=== PATIENT | male | born 1945 | race Caucasian/White ===

== ENCOUNTER 2019-03-21 11:41 | Outpatient (RCR) | payer MEDICARE, SELFPAY | END 2019-03-29 00:01 | LOC: ONCMED 11:41 | PROVIDERS: Visit Provider Internal Medicine Hematology & Oncology | DX: Z51.12 Encounter for antineoplastic immunotherapy (principal); C34.01 Malignant neoplasm of right main bronchus; K76.9 Liver disease, unspecified; R91.8 Other nonspecific abnormal finding of lung field; J44.9 Chronic obstructive pulmonary disease, unspecified; I25.2 Old myocardial infarction; I25.10 Atherosclerotic heart disease of native coronary artery without angina pectoris; I11.0 Hypertensive heart disease with heart failure; I50.9 Heart failure, unspecified; F17.201 Nicotine dependence, unspecified, in remission; Z79.899 Other long term (current) drug therapy; Z92.3 Personal history of irradiation; Z95.5 Presence of coronary angioplasty implant and graft ==

== ENCOUNTER 2019-04-25 05:35 | Outpatient (RCR) | payer MEDICARE, SELFPAY ==
[2019-04-04 10:28] LABS: Basophils % 0.2 %; Eosinophils # 0.1 10^3/uL (0.0-0.8); Eosinophils % 0.6 %; Hematocrit 35.8 % (42.0-52.0); Hemoglobin 11.1 g/dL (11.7-16.6); Lymphocytes # 0.9 10^3/uL (0.8-4.8); Lymphocytes % 9.2 %; Mean Corpuscular Hemoglobin 24.6 pg (28.0-34.0); Mean Corpuscular Volume 79.2 fL (80-94); Monocytes # 0.7 10^3/uL (0.2-0.9); Monocytes % 7.3 %; Neutrophils # 7.9 10^3/uL (1.8-7.7); Neutrophils % 82.2 %; Nucleated Red Blood Cells % 0 %; Platelet Count 321 10^3/cmm (130-400); Red Blood Count 4.52 10^6/uL (4.1-5.3); Red Cell Distribution Width 15.7 % (12.1-15.1); White Blood Count 9.6 10^3/uL (4.0-10.0)
[2019-04-04 10:44] LABS: Alanine Aminotransferase 7 U/L (0-41); Albumin Level 3.9 g/dL (3.5-5.2); Alkaline Phosphatase 110 IU/L (40-130); Anion Gap 14.7 (5-19); Aspartate Amino Transferase 6 U/L (0-40); Blood Urea Nitrogen 8 mg/dL (8-23); Calcium 10.4 mg/Dl (8.8-10.2); Carbon Dioxide 26 mmol/L (22-29); Chloride 92 mmol/L (98-107); Globulin 3.2 g/dL (1.3-4.6); Glucose 215 mg/dL (74-106); Potassium 4.7 mmol/L (3.5-5.1); Sodium 128 mmol/L (136-145); Total Bilirubin 0.6 mg/dL (0.15-1.2); Total Protein 7.1 g/dL (6.6-8.7)
[2019-04-04 11:07] LABS: Slide Review Slide Review Perform
[2019-04-04] MEDS: sodium chloride 0.9% 250 ML 75 ML IV (11:45)
[2019-04-11 12:11] LABS: Eosinophils % 0.6 %; Hematocrit 33.8 % (42.0-52.0); Hemoglobin 10.3 g/dL (11.7-16.6); Lymphocytes # 0.6 10^3/uL (0.8-4.8); Lymphocytes % 17.1 %; Mean Corpuscular HGB Conc 30.5 g/dL (30.0-36.0); Mean Corpuscular Hemoglobin 25.6 pg (28.0-34.0); Mean Corpuscular Volume 83.9 fL (80-94); Mean Platelet Volume 9.8 fL (7.4-10.4); Monocytes # 0.3 10^3/uL (0.2-0.9); Monocytes % 7.2 %; Neutrophils # 2.6 10^3/uL (1.8-7.7); Neutrophils % 74.2 %; Nucleated Red Blood Cells % 0 %; Platelet Count 204 10^3/cmm (130-400); Red Blood Count 4.03 10^6/uL (4.1-5.3); Red Cell Distribution Width 15.7 % (12.1-15.1); White Blood Count 3.5 10^3/uL (4.0-10.0)
[2019-04-11 12:23] LABS: Alanine Aminotransferase 17 U/L (0-41); Albumin Level 3.1 g/dL (3.5-5.2); Alkaline Phosphatase 101 IU/L (40-130); Anion Gap 13.8 (5-19); Aspartate Amino Transferase 7 U/L (0-40); Blood Urea Nitrogen 8 mg/dL (8-23); Calcium 9.6 mg/Dl (8.8-10.2); Carbon Dioxide 25 mmol/L (22-29); Chloride 94 mmol/L (98-107); Globulin 3.7 g/dL (1.3-4.6); Glucose 379 mg/dL (74-106); Potassium 4.8 mmol/L (3.5-5.1); Sodium 128 mmol/L (136-145); Total Bilirubin 0.2 mg/dL (0.15-1.2); Total Protein 6.8 g/dL (6.6-8.7)
[2019-04-11] MEDS: sodium chloride 0.9% 500 ML 999 ML IV (13:40)
--- NOTE | 2019-04-11 14:12 | ONC FU_ITS ---
[facility] Patient Note Patient: Yogesh Vazquez Unit #: [id number]: 1945 Dictated By: Ben FieldsDate of Visit: Apr 11, 2019 Onc MED Follow-Up/Prog Note Chief Complaint: Lung cancer Right distal main stem bronchus History of Present Illness: Mr. Vazquez is a 74-year-old gentleman with a history of recurrent pneumonias; off and on blood-streaked phlegm; and for at least for 3 weeks coughing up blood . He presented with baseline cough and dyspnea on exertion. He has had fatigue but a good appetite and energy level. Overall he had lost about [address] scan of chest on 10/10/2016 showed right suprahilar and hilar mass 3 x 3.5 x 3.6 cm with diffuse bronchial involvement and narrowing. Soft tissue mass invading the right distal main stem bronchus with severe narrowing of the right proximal upper bronchus . PETCT scan done on 10/18/2016 reveals a 4.5 cm cavitary malignancy in the suprahilar region of the right lung with an SUV of 13.7. The mass encases the right upper lobe bronchus and causes obstructive atelectasis of the anterior segment of the right upper lobe. No evidence of distant metastatic disease. Mr Vazquez underwent bronchoscopy with Dr. Chamorro on 10/22/2016. Pathology report revealed: Lung, Right Mainstem Bronchus, Bronchial Biopsy: Non-Small Cell Carcinoma???Squamous Cell Carcinoma with Immunoperoxidase stain results: block number 1 1. Positive results:CK???5; P???63; TRIM-29; Desmoglein. 2. Negative results:TTF-1; napsin. 3. EGFR 600 E were both reported as negative the as rearrangement by fish was negative ROS 1 & by fish is negative. PD-L1 by IHC 22C3 and PD-L1 by IHC 28-8. Status post combined chemoradiation with weekly cisplatin PAST MEDICAL HISTORY: Myocardial Infarction in 1996 with stent placement in 1996, CAD; Restrictive Airway Disease,chronic obstructive pulmonary disease; congestive heart failure ;hyperlipidemia and hypertension. additional pathology reported EGFR negative BRAF V 60 PAST SURGICAL HISTORY: Cardiac stent in 1996 and hernia repair in 2008. CT scan of chest done on 10/08 showed increased right suprahilar mass 2.9 x 3.2 cm compared to 1.4 cm mass seen on CT PET scan done on 04/11/2017. With this impression he was started on biweekly nivolumab on 11/04/2017. Mr Vazquez had staging with MRI of the brain on 10/31/2017. The MRI did not show any evidence of enhancing intracranial metastatic disease. There was no restricted diffusion to suggest acute ischemia. He did have mild small vessel changes with moderate parenchymal volume loss. There is a small focus of hemosiderin in the right basal ganglia. f/u Ct from 12/14/2017 reported increased cavitation of the right hilar region neoplastic process with continued narrowing of the origin of the right upper lobe bronchus and right upper lobe pulmonary artery branch. No evidence of disease progression elsewhere. Improved anterior segment and persistent posterior segment right upper lobe partial atelectasis. Remote granulomatous disease. Chronic emphysema . He continued on biweekly nivolumab. CT scan of chest done after 6 doses of nivolumab on 01/21/2018 showed stable right suprahilar cavitated neoplastic mass.Now measures 2.2 cm, Slight improvement in the surrounding soft tissue thickening no evidence of disease progression. Persistent narrowing of right upper main stem bronchus and pulmonary artery and persistent partial atelectasis of anterior and posterior right upper lobe. CT PET scan done on 04/17/2018 showed a new 1.8 cm right upper lobe consolidation with SUV 9.1 and superior right hilar lymph node 2.6 cm with SUV of 6.9 compared to 1.7 on previous scan. A new right inferior paratracheal lymph node with SUV of 6. CT PET scan done on 09/18/2018 showed progression of cavitary right upper lobe mass now measured 2.4 x 3 cm compared to 1.8 cm on 04/17/2018 and right hilar malignant adenopathy and stable right paratracheal lymph node, no evidence of distant metastatic disease. Treated with Augmentin/Medrol Dosepak for COPD exacerbation and postobstructive pneumonia right upper lobe and follow-up chest x-ray on 10/04/2018 showed cavitating neoplasm right upper lobe with subsegmental atelectasis appears stable when compared with CT scan of chest done on 01/21/[address] PET done 09/18/2018 Follow-up CT scan of chest done on 12/21/2018 showed there is an increase in the tissue in the right upper lobe with increase in size of cavity to 4.85 cm, whether this increase in tissue represent atelectasis, inflammatory changes or tumor recurrence there is to be determined. There is a development of another small cavity anterior to larger cavity Pleural-based densities in the right upper lobe and right middle lobe have developed since last CT scan done on 01/21/2018 otherwise no evidence of distant metastases. Follow-up CT PET scan done on 03/19/2019 showed the cavitary right upper lobe lesion has progressed, now measuring 11 x 6.4 cm with SUV of 14.8 this. Right hilar lymph node now measure 4.2 x 6 cm with SUV of 10.6 representing progression. The right paratracheal node is similarly progressed. A new questionable adhesion of activity is noted in the central right hepatic lobe roughly 1 cm could be normal variant or early metastatic disease. Dr Mcarthur offered hospice or a trial of carboplatin/gemcitabine. Mr Vazquez elected to try the chemotherapy and began his first cycle of carboplatin/gemcitabine on 04/04/2019. Mr. Vazquez is here today for follow-up and consideration of day 8 of cycle 1. He will have gemcitabine only today. He states overall he feels pretty good. His breathing is slightly better. He still has a cough but is not coughing much up. He states he still has trouble to breathe when walking across the room. He states that he is not smoking. And has not in some time. He denies any fever or chills. He said no mouth sores, sore throat or difficulty swallowing. He denies any chest discomfort or palpitations. He states he did have nausea on of last week and is felt cardiac. He had no vomiting. He denies any diarrhea. He did not try any antiemetics at home. He states it just went away on its own. He states he is eating normally for him. He does occasionally check his blood sugars at home and states that they are greater than 400 then he will watch his diet very carefully and take his sugar medication for couple of days and the blood sugar will get less than 200 . He states he is having some urinary hesitancy at times. He denies any burning but states is just hard to pee at times . We did discuss Flomax. He does not want any medication at this time. He was advised I would like to do a UA on him today if possible while he is here. We are giving him hydration for possible dehydration so we may not be able to get a UA on him. He does like to double check and make sure he does not have a urinary tract infection and that is the culprit of his urinary concerns. He remains active as much as he can. He does run out of wind pretty easily and has to rest. His ECOG is 1. Past Medical History: Chronic obstructive pulmonary disease Congestive heart failure Coronary artery disease Hyperlipidemia Hypertension Restrictive Airway Disease Myocardial Infarction in 1996 Past Surgical History: Hernia repair in 2008 Heart stent in 1996 Allergies: No Known Allergies. Medications: Aspirin 1 Tablet (of 81 mg) Oral daily Isosorbide Mononitrate ER 1 Tablet (of 30 mg) Tablet SR 24 HR Oral daily Januvia 1 Tablet (of 100 mg) Oral daily MetFORMIN HCl ER 1 Tablet (of 750 mg) Tablet SR 24 HR Oral b.i.d. Metoprolol Tartrate 1 Tablet (of 25 mg) Oral daily Pravastatin Sodium 1 Tablet (of 10 mg) Oral daily ProAir HFA 1 puff(s) (of 108 (90 base) mcg/act) Aerosol, solution Inhalation q 4 hours PRN Symbicort 2 puff(s) (of 160-4.5 mcg/act) Aerosol Inhalation b.i.d. Family History: Mr. Vazquez's mother at age 90: heart disease. Mr. Vazquez's father at age 87: congestive heart failure. Mr. Vazquez has 2 sisters: 2 . Mr. Vazquez's first sister's cancer. Another sister's cancer. Social History: Mr. Vazquez is and he is retired. He is a daily smoker who has smoked 1.0 pack/day for 50 years. He has no history of drinking. Mr. Vazquez reports the following support systems: lives alone and adequate transportation available for expected visits. His diet consists of regular meals. He indicates his activity level as: daily activities. Review Of Symptoms: Constitutional Denies fevers, chills, night sweats, excessive fatigue or weight loss. Allergic/Immunologic No reactions. Eyes Denies significant visual changes. No diplopia. No amaurosis. ENMT Denies changes in hearing, sore throat, mouth sores, difficulty or changes in swallowing ability, and/or sinus drainage. Endocrine No diabetes, thyroid disease or hormone replacement. Denies hot flashes or night sweats. Hematologic/Lymphatic Denies easy bruising or bleeding. The patient denies any tender or palpable lymph nodes. Respiratory Denies any new dyspnea on exertion, chest pain. Denies orthopnea. Continues with shortness of breath and intermittent cough but unchanged overall. Cardiovascular Denies anginal chest pain, palpitations or orthopnea. Gastrointestinal Denies nausea, vomiting, diarrhea, GI bleeding, or constipation. Denies change in bowel habits and/or stool color, no heartburn or early satiety. Genitourinary (M) Denies hematuria, dysuria, increased frequency, urgency, hesitancy or incontinence. Musculoskeletal Denies joint pain, swelling or redness. No decreased range of motion. Integumentary Denies chronic rashes, inflammation, ulcerations or skin changes. Neurologic Denies headache, blurred vision, and no areas of focal weakness or numbness. Normal gait. No sensory problems. Psychiatric Denies insomnia, depression, mejia or mood swings. Vital Signs: Performed on Apr 11, 2019 13:04 Height - 72.00 in Weight - 153 lbs (LOW) BSA - 1.90 sq.m BMI - 20.75 Temperature - 98.9 F (HIGH) Pulse - 108 /min (HIGH) Respiration - 18 /min BP - 87/59 mm(hg) (LOW) O2 Sat - 97 % Pain - 0,2 - Ambulatory/capable of all self-care, unable to perform any work activities. Up and about more than 50% of waking hours. (ECOG) Physical Examination: Constitutional Alert, oriented, no acute distress but obviously short of breath. Skin pink, warm and dry. Head Normocephalic; atraumatic. Eyes Conjunctivae and sclerae are clear and without icterus. Pupils are reactive and equal. Neck Supple without masses or thyromegaly. No jugular venous distension. Hematologic/Lymphatic No petechiae or purpura. No tender or palpable lymph nodes in the cervical, supraclavicular areas. Respiratory Lungs are diminished bilaterally to auscultation with mild rhonchi and expiratory wheezing. Cardiovascular Regular rate and rhythm of heart without murmurs,clicks, gallops or rubs. Chest Chest is symmetric without chest wall deformities. Left chest wall venous access device is unremarkable. Back/Spine Non-tender to palpation. Extremities No visible deformities, no cyanosis, clubbing or edema. Pulses 4+ and equal bilaterally. Musculoskeletal No tenderness or swelling, normal range of motion without obvious weakness. Integumentary No rashes or lesions. Neurologic No sensory or motor deficits, normal cerebellar function, normal gait. Psychiatric Alert and oriented times three. Coherent speech. Verbalizes understanding of our discussions today. Laboratory:Test performed on Apr 11, 2019 12:49 Glucose 379 mg/dL BUN 8 mg/dL Creatinine 0.8 mg/dL Cr Clearance (Est) 79.63 mL/min Sodium 128 mmol/L Potassium 4.8 mmol/L Chloride 94 mmol/L CO2 25 mmol/L Calcium 9.6 mg/dL Protein, Total 6.8 g/dL Albumin 3.1 g/dL Globulin 3.7 g/dL Bilirubin, Total 0.2 mg/dL Alkaline Phosphatase 101 IU/L AST (SGOT) 7 IU/L ALT (SGPT) 17 IU/L Test performed on Apr 11, 2019 12:45 WBC 3.5 10^9/L RBC 4.03 10^12/L HGB 10.3 g/dL HCT 33.8 % MCV 83.9 fl MCH 25.6 pg MCHC 30.5 g/dL RDW 15.7 % Platelet Count 204 10^9/L MPV 9.8 fL Neutrophils (Gran) 2.6 10^9/L Lymphocytes 0.6 10^9/L Monocytes 0.3 10^9/L Eosinophils 0 10^9/L Basophils 0 10^9/L Manual Lymphocytes 9.2 % Manual Monocytes 7.3 % Manual Eosinophils 0.6 % Manual Basophils 0.2 % Test performed on Apr 11, 2019 11:41 Neutrophil % 0.6 % Test performed on Feb 03, 2019 11:35 Ferritin 321.0 ng/ml Iron 21 ug/dL TSH 0.92 uIU/mL % Iron Saturation 14.0 % UIBC 129 ug/dL Impression: Mr. Vazquez is a 74-year-old gentleman with a history of recurrently diagnosed nonsmall cell lung cancer of the right mainstem bronchus. He presented with hemoptysis and CT scan of chest on 10/10/2016 showed right suprahilar and hilar mass 3 x 3.5 x 3.6 cm with diffuse bronchial involvement and narrowing. Soft tissue mass invading the right distal main stem bronchus with severe narrowing of the right proximal upper bronchus . CT PET scan done on 10/18/2016 reveals a 4.5 cm cavitary malignancy in the suprahilar region of the right lung with an SUV of 13.7. The mass encases the right upper lobe bronchus and causes obstructive atelectasis of the anterior segment of the right upper lobe. No evidence of distant metastatic disease. He underwent bronchoscopy with Dr. Chamorro on 10/22/2016. 1. Pathology report revealed: Lung, Right Mainstem Bronchus, Bronchial Biopsy: Non-Small Cell Carcinoma???Squamous Cell Carcinoma with Immunoperoxidase stain results: block number 1 a. Positive results:CK???5; P???63; TRIM-29; Desmoglein. b. Negative results:TTF-1; napsin. clinical stage T2b,N1 EGFR & BRAF 600 E were both reported as negative the as rearrangement by fish was negative ROS 1 & by fish is negative. PD-L1 by IHC 22C3 and PD-L1 by IHC 28-8.Status post combined chemoradiation with weekly cisplatin s/p every 2 week nivolumab From 11/04/2017 till 03/21/2019. Patient missed a few doses of nivolumab Treatments Follow-up CT PET scan done on 03/19/2019 showed disease progression in right upper chest and a questionable new lesion in the liver but no bone metastases at that time immunotherapy was discontinued and palliative chemotherapy with carboplatin/gemcitabine day 1 and 8 and repeat every 21 days was planned 2. Myocardial Infarction in 1996 3. Restrictive Airway Disease 4. chronic obstructive pulmonary disease 5. congestive heart failure 6. coronary artery disease-stent in 1996 7. hyperlipidemia 8. hypertension. 9. hyper glycemia with elevated hemoglobin A1c ? AODM or STEROIDS induced CT PET scan done on 01/31/2017 showed equivocal PET/CT scan exam. Primary site of malignancy in the right suprahilar region measuring 1.8 cm with SUV 4 compared to 4.5 cm an SUV 13.7 on his prior exam, dense atelectasis of posterior segment of right upper lobe with 5.4 x 3 cm thick-walled cavitary component that has 2 centimeter focus of hyper metabolism. Could be persistent malignancy or infection. No distant metastatic lesion seen Right chest wall pain no definitive mass, no overlying skin changes ,Tenderness present. Etiology could be musculoskeletal or rib fracture due to bump or recurrence of disease or early shingles CT PET scan done on 04/11/2017 showed 1.4 cm right suprahilar mass has SUV of 6.7 compared to 1.8 cm with SUV of 4 on prior exam done on 01/31/2017. Otherwise no sign of distant metastasis. Ct from 12/14/2017 reported increased cavitation of the right hilar region neoplastic process with continued narrowing of the origin of the right upper lobe bronchus and right upper lobe pulmonary artery branch. No evidence of disease progression elsewhere. Improved anterior segment and persistent posterior segment right upper lobe partial atelectasis. Remote granulomatous disease. Chronic emphysema . Follow-up CT scan of chest done after 6 doses of nivolumab , on 01/21/2018 showed persistent 2.2 cm right suprahilar mass with slight improvement in surrounding soft tissue thickening. No evidence of disease progression. Persistent narrowing of right upper main stem bronchus and pulmonary artery and persistent partial atelectasis of anterior and posterior right upper lobe. Moderate emphysema . CT PET scan done on 04/17/2018 showed a new 1.8 cm right upper lobe consolidation SUV 9.1, Us. Right hilar lymph node 2.6 cm with SUV 6.9, compared to 1.7 cm on previous scan, questionable progression. A new right inferior paratracheal lymph node with SUV 6.0 Mr. Vazquez continued on every two-week nivolumab.. Follow-up CT PET scan done on 09/18/2018 showed most hypermetabolic segment of right upper lobe lesion now measures 2.4 x 3.0 cm with an SUV of 14.0 compared to 1.8 cm with SUV of 9.1 on 04/17/2018 and right hilar lymph node which measured 2.7 cm with SUV of 8.4 compared to 2.6 cm with SUV of 6 on 04/17/2018. There is no malignant cavitation with hypermetabolic postobstructive atelectasis and mild FDG activity in the solid portion of cavitary mass with a measured 7.4 x 5.3 cm overall Stable right paratracheal lymph node. He has increased shortness of breath, even with minimal exertion. Dr Mcarthur was concerned that he could have pneumonitis from the immunotherapy; it may also be disease progression. The immunotherapy was placed on hold. Dr Mcarthur iscussed with Mr Vazquez his CT PET scan findings from03/19/2019 which showed evidence of disease progression in the right chest e.g. progression of right upper lobe cavitary mass and right hilar paratracheal lymph node. And questionable new lesion in the central right hepatic lobe. At that point treatment options includied hospice care was discussed per Dr Mcarthur. Mr Vazquez wants to try palliative therapy so weekly carboplatin AUC 2 and gemcitabine 1000mg/m2 day 1 and day 8 and repeat cycle every 21 days was recommended. Mr Vazquez began his first cycle on 04/04/2019. Plan: 1. Proceed with cycle 1 day 8 Gemzar only. 2. 500 mL NS today for dehydration/hypotension. 3. Encouraged to Compazine prn nausea/queasiness. 4. Today's labs were reviewed in detail and discussed with Mr Vazquez. WBC 3.5 (was 9.6 on day 1), HGB 10.3, platelets 204,000 and ANC 2600 (was 7900 day 1). K+ 4.8, RBS 379, creatinine = 0.8 and LFTs are normal. 5. Mr Vazquez was informed that he may need growth factor support. His ANC will need to drop to around 1000 before insurance approval for Neupogen or Neulasta. 6. He states he is not smoking at all. 7. He states he is not watching his diet and is not taking his diabetic medication. He states if his blood sugar get above 400 then he watches his diet and will take his diabetic pills for couple days and his blood sugar will get less than 200. He states he does not plan to take them daily. 8. I have asked to recheck a CBC in 1 week. He will need assessment for possible neutropenia as his ANC has dropped significantly today from last week. We will add growth factors at that time if appropriate. 9. We will plan to see him back in 2 weeks with CBC CMP, iron studies (hx of iron deficiency) and follow-up for consideration of cycle 2-day 1 carboplatin gemcitabine. 10. Mr. Vazquez was instructed to contact us in the interim should questions or problems arise. Signed By: Ben Fields-, [facility] HOSPITALAngela Mcarthur MD <<Signature on File>>
[2019-04-11 15:42] LABS: Add Urine Microscopic? NO
[2019-04-11 19:11] LABS: Bilirubin Urine Neg (NEGATIVE); Blood Urine Neg (Negative); Glucose Urine UA 4+ (Normal); Ketones Urine Negative (Negative); Leukocyte Esterase Urine Negative (Negative); Nitrate Urine Negative (Negative); Protein Urine Neg (Negative); Specific Gravity, Urine 1.005 (1.005-1.030); Urine Appearance Clear (CLEAR); Urine Color Yellow (Yellow); Urobilinogen Urine 1 mg/dL (Negative); pH Urine 7 (5-7)
[2019-04-18 13:43] LABS: Basophils % 0.5 %; Hematocrit 30.2 % (42.0-52.0); Hemoglobin 9.5 g/dL (11.7-16.6); Lymphocytes # 0.4 10^3/uL (0.8-4.8); Lymphocytes % 18.6 %; Mean Corpuscular HGB Conc 31.5 g/dL (30.0-36.0); Mean Corpuscular Hemoglobin 24.9 pg (28.0-34.0); Mean Corpuscular Volume 79.3 fL (80-94); Mean Platelet Volume 10.7 fL (7.4-10.4); Monocytes # 0.3 10^3/uL (0.2-0.9); Monocytes % 12.6 %; Neutrophils # 1.5 10^3/uL (1.8-7.7); Neutrophils % 67.4 %; Nucleated Red Blood Cells % 0 %; Platelet Count 81 10^3/cmm (130-400); Red Blood Count 3.81 10^6/uL (4.1-5.3); Red Cell Distribution Width 15.3 % (12.1-15.1); White Blood Count 2.2 10^3/uL (4.0-10.0)
[2019-04-18 14:28] LABS: Alanine Aminotransferase 17 U/L (0-41); Albumin Level 3.1 g/dL (3.5-5.2); Alkaline Phosphatase 98 IU/L (40-130); Anion Gap 16.6 (5-19); Aspartate Amino Transferase 14 U/L (0-40); Blood Urea Nitrogen 10 mg/dL (8-23); Calcium 9.6 mg/Dl (8.8-10.2); Carbon Dioxide 24 mmol/L (22-29); Chloride 96 mmol/L (98-107); Globulin 3.8 g/dL (1.3-4.6); Glucose 309 mg/dL (74-106); Potassium 4.6 mmol/L (3.5-5.1); Sodium 132 mmol/L (136-145); Total Bilirubin 0.4 mg/dL (0.15-1.2); Total Protein 6.9 g/dL (6.6-8.7)
== END 2019-04-29 23:59 | disposition home or self-care (01) ==
LOC: ONCMED 05:35
PROVIDERS: Nurse Practitioner; PCP Nurse Practitioner Family; Visit Provider Internal Medicine Hematology & Oncology
DX: Z51.11 Encounter for antineoplastic chemotherapy (principal); C34.01 Malignant neoplasm of right main bronchus; C77.1 Secondary and unspecified malignant neoplasm of intrathoracic lymph nodes; R73.9 Hyperglycemia, unspecified; R39.11 Hesitancy of micturition; D70.1 Agranulocytosis secondary to cancer chemotherapy; T45.1X5A Adverse effect of antineoplastic and immunosuppressive drugs, initial encounter; I25.2 Old myocardial infarction; I25.10 Atherosclerotic heart disease of native coronary artery without angina pectoris; J44.9 Chronic obstructive pulmonary disease, unspecified; I50.9 Heart failure, unspecified; I10 Essential (primary) hypertension; E78.5 Hyperlipidemia, unspecified; J45.909 Unspecified asthma, uncomplicated; F17.210 Nicotine dependence, cigarettes, uncomplicated; Z79.899 Other long term (current) drug therapy; Z87.01 Personal history of pneumonia (recurrent); Z92.3 Personal history of irradiation; Z95.5 Presence of coronary angioplasty implant and graft; Z92.21 Personal history of antineoplastic chemotherapy; Z92.25 Personal history of immunosuppression therapy
CPT/HCPCS: 36415; 36591; 80053; 81003; 85025; 96361; 96367; 96413; 96417; 99214; J1100; J1453; J2469; J7040; J7050; J9045; J9201

== ENCOUNTER 2019-04-25 11:10 | Inpatient (IN) | payer MEDICARE, SELFPAY ==
[2019-04-25] VITALS (11 sets, daily range): BP systolic 65–103; BP diastolic 58–74; PULSE 114–131; RESP 18–30; TEMP 36.4–37.3; O2SAT 94–97; BMI 20.3
--- NOTE | 2019-04-25 11:17 | ED_ITS ---
HPI - SOB/Dyspnea General: Chief Complaint: Shortness of Breath/Dyspnea Stated Complaint: SOB/CA pt Time Seen by Provider: 04/25/19 11:17 History of Present Illness: HPI Narrative: 74-year-old male who was diagnosed with lung cancer about 1/2 to 2 years ago. He comes in today complaining of increasing shortness of breath and productive cough some mild chest discomfort on the right. He is currently still getting treatments he uses nebulizers at home he is not on any oxygen at home. Cough is been increasingly productive and he has had a low-grade fever. MD elicited complaint: shortness of breath, cough and pain with inspiration Pertinent past history: COPD and other (Lung cancer) Onset (ago): day(s) (4 to 5 days) Timing: constant Severity: severe Exacerbating factors: exertion, movement, coughing and deep breaths Relieving factors: oxygen, rest and bronchodilators Known history of: COPD and other (Lung cancer with metastasis) Associated symptoms: Reports fever(s); Deny abdominal pain, chest pain, dizziness, extremity pain, nausea, orthopnea, palpitations, polydipsia, polyuria, syncope or vomiting Review of Systems Const: Reports: fever, chills, body aches, fatigue and malaise; Denies: night sweats Eyes: Denies: change in vision or blurry vision ENMT: Denies: throat pain, oral sores/lesions, dental pain, nasal discharge or nasal congestion Card: Denies: chest pain, palpitations, irregular heart rhythm, edema, syncope, shortness of breath on exertion, shortness of breath when lying down or leg pain with exertion Resp: Reports: shortness of breath, productive cough and wheezing; Denies: non-productive cough GI: Denies: abdominal pain, nausea, vomiting, vomiting blood, coffee grounds in vomit, difficulty swallowing, heartburn/indigestion, diarrhea, constipation, cramping, blood in stool or black tarry stool : Denies: flank pain, difficulty urinating, painful urination, urinary frequency, urinary urgency, urinary incontinence or blood in urine Musc: Denies: neck pain, back pain, extremity pain, extremity swelling, joint pain or joint swelling Skin/Breast: Denies: rash, itching or redness Neuro: Denies: headache, numbness in extremities, weakness in extremities, changes in sensation, lack of coordination, difficulty walking, frequent falls, dizziness, vertigo or confusion Psych: Denies: anxiety, depression, loss of interest, visual hallucinations, auditory hallucinations, suicidal ideation or homicidal ideation Endo: Denies: excessive urination, excessive thirst, tired all the time or cold intolerance Dariel/Lymph: Denies: easy bruising, easy bleeding, petechiae, enlarged lymph nodes or tender lymph nodes PFSH ED PFSH: Statuses (acute, chronic, etc) shown below reflect problem list status as previously entered and may not be historically accurate Medical History CAD (coronary artery disease) (Acute) CHF (congestive heart failure) (Acute) COPD (chronic obstructive pulmonary disease) (Acute) HLD (hyperlipidemia) (Acute) HTN (hypertension) (Acute) NSCLC of right lung (Acute) Restrictive lung disease (Acute) Surgical History Hx of hernia repair (Acute) Stented coronary artery (Acute) Family History Father CHF (congestive heart failure) Sister Cancer Mother Heart disease Social History Smoking and tobacco status: former smoker Quit status (tobacco): has quit using tobacco Year quit tobacco: 1 month ago Alcohol intake: never Substance/Drug Use: never Lives independently: Yes Household members: other Details: Son lives next door Marital status: / Current occupational status: retired Physical Exam Const: COMMON NORMALS: no apparent distress GENERAL APPEARANCE: cooperative and comfortable ORIENTATION/CONSCIOUSNESS: Yes awake, Yes oriented to person, Yes oriented to place and Yes oriented to time HENMT: COMMON NORMALS: normocephalic, head/scalp atraumatic, hearing grossly normal bilaterally, external ears normal, EAC's normal, TM's normal bilaterally, nasal mucous membranes and turbinates normal, moist oral mucous membranes and oropharynx normal HEAD & SCALP: normocephalic and atraumatic NOSE: nasal mucous membranes and turbinates normal EXTERNAL EAR: Yes external ears normal EXTERNAL AUDITORY CANAL: EAC's normal TYMPANIC MEMBRANE: TM's normal bilaterally Eye: COMMON NORMALS: PERRL, EOMs intact bilaterally, conjunctivae normal and no scleral icterus CONJUNCTIVA: Yes conjunctivae normal PUPIL: Yes PERRL Neck/C-Spine: COMMON NORMALS: full ROM, no lymphadenopathy, supple and no JVD Lymph: LYMPHATIC: no lymphadenopathy noted and no lymphedema noted Resp: EFFORT & INSPECTION: Yes tachypneic, Yes pursed lip breathing, Yes labored, Yes uses accessory muscles and Yes audible wheezes AUSCULTATION: rhonchi (Worse right upper lobe) throughout and wheezes throughout Cardio: COMMON NORMALS: no JVD, regular rate, regular rhythm and no murmurs RATE: regular rate RHYTHM: regular rhythm GI: COMMON NORMALS: soft to palpation and no hepatosplenomegaly AUSCULTATION: Yes normoactive bowel sounds PALPATION: Yes soft, No tender, No guarding and Yes no hepatosplenomegaly Extremity: COMMON NORMALS: normal to inspection, normal capillary refill, no clubbing, cyanosis or edema, no calf tenderness and no pedal edema Neuro: SENSORIUM/ORIENTATION: Yes oriented to person, Yes oriented to place and Yes oriented to time Skin: COMMON NORMALS: no rashes or lesions noted GENERAL SKIN EXAM: no rashes or lesions noted Course ED course: Patient has known lung CA. She has a postobstructive pneumonia. Was started on antibiotics fluids for aggressive pulmonary toilet and steroids. Discussed Dr. Naqvi asked that we get a CTA of the chest. Does appear to be septic as well fluid boluses given Vital Signs: Vital signs: Vital Signs Temperature 99.1 F 04/25/19 11:11 Pulse Rate 131 H 04/25/19 11:11 Respiratory Rate 20 H 04/25/19 11:11 Blood Pressure 103/74 04/25/19 11:11 Pulse Oximetry 94 04/25/19 11:11 Discharge Plan Discharge Patient Disposition: Admitted As Inpatient Admit Provider: Isaac Naqvi Clinical Impression: Pneumonia, NSCLC of right lung, COPD (chronic obstructive pulmonary disease) Condition: Stable Interventions: ED Discharge Assessment Last Done: 04/25/19 15:16 Discharge Date/Time: 04/25/19 16:02 Coding Level of Care Code ED Aquatic Facility Manager for [facility]
--- NOTE | 2019-04-25 11:22 | XRR_ITS ---
PROCEDURE INFORMATION: Exam: XR Chest, 1 View Exam date and time: 04/25/2019 11:39 AM Age: 74 years old Clinical indication: Dyspnea; lung CA TECHNIQUE: Imaging protocol: XR of the chest Views: 1 view. COMPARISON: CR Chest 2 views 02/08/2019 11:10 AM FINDINGS: Tubes, catheters and devices: There is a left subclavian port present with the catheter tip in the superior vena cava. Lungs: There is decreased volume in the right lung. There is increased ill-defined parenchymal opacity in the right upper lung zone. The minor fissure appears elevated. The right hilum is obscured. Pleural space: No pleural effusion or pneumothorax. Heart/Mediastinum: The cardiac silhouette is not enlarged. Mediastinum is shifted slightly to the right. Bones/joints: No acute osseous abnormality. XR/XR chest 1V portable [id number] IMPRESSION: Increasing parenchymal opacity with signs of volume loss affecting the right upper lung zone. This could be due to neoplasm, pneumonia, radiation pneumonitis/fibrosis, and/or atelectasis.
--- NOTE | 2019-04-25 11:22 | PC.NURSE ---
NC applied @ 2LPM
[2019-04-25 11:38] LABS: Hematocrit 34.2 % (42.0-52.0); Hemoglobin 10.6 g/dL (11.7-16.6); Lymphocytes # 0.4 10^3/uL (0.8-4.8); Lymphocytes % 9.5 %; Mean Corpuscular Hemoglobin 25.2 pg (28.0-34.0); Mean Corpuscular Volume 81.2 fL (80-94); Mean Platelet Volume 9.8 fL (7.4-10.4); Monocytes % 22.8 %; Neutrophils # 2.9 10^3/uL (1.8-7.7); Nucleated Red Blood Cells % 0 %; Platelet Count 506 10^3/cmm (130-400); Red Blood Count 4.21 10^6/uL (4.1-5.3); Red Cell Distribution Width 17.4 % (12.1-15.1); White Blood Count 4.3 10^3/uL (4.0-10.0)
[2019-04-25] MEDS: ipratropium-albuterol 3 mL Neb INHALATION ×2 (11:45→18:15)
[2019-04-25] MEDS: sodium chloride 0.9% 500 ML 999 ML IV (11:46)
[2019-04-25 12:10] LABS: Alanine Aminotransferase 11 U/L (0-41); Albumin Level 3.3 g/dL (3.5-5.2); Alkaline Phosphatase 86 IU/L (40-130); Anion Gap 16.7 (5-19); Aspartate Amino Transferase 14 U/L (0-40); Blood Urea Nitrogen 9 mg/dL (8-23); Calcium 9.6 mg/dL (8.5-10.5); Carbon Dioxide 24 mmol/L (22-29); Chloride 92 mmol/L (98-107); Globulin 4.1 g/dL (1.3-4.6); Glucose 241 mg/dL (74-106); NT Pro B Type Natriuretic Pept 618 pg/mL (0-125); Potassium 4.7 mmol/L (3.5-5.1); Sodium 128 mmol/L (136-145); Total Bilirubin 0.4 mg/dL (0.15-1.2); Total Protein 7.4 g/dL (6.6-8.7)
[2019-04-25 12:19] LABS: ABG PCO2 30.5 mmHg (35-45); ABG PH Result 7.51 (7.35-7.45); Arterial Blood Gas Hematocrit 31.4 % (42-52); Base Excess ABG 1.4 mmol/L (-2.0-2.0); Blood Gas Allen Test Pos; Blood Gas Sample Site Brachial, right; Blood Gas Sample Type Arterial; HGB O2 Sat 94.1 % (95-100); Methemoglobin 0.5 % (0.4-1.5); Oxygen Device NC; PO2 ABG 66.7 mmHg (80.0-100.0); Total Hemoglobin 10.3 g/dL (14-18)
[2019-04-25 12:38] LABS: Influenza A by IFA Negative (Negative); Influenza B by IFA Negative (Negative)
--- NOTE | 2019-04-25 13:26 | ECG_ITS ---
Measurements Intervals [place] Rate: 130 P: 61 NM: 119 QRS: 66 QRSD: 77 T: 70 QT: 284 QTc: 418 SINUS TACHYCARDIA WITH SHORT NM INTERVAL ABNORMAL RHYTHM ECG Compared to ECG 12/01/2018 11:35:48 Short NM interval now present Electronically Signed On 04-25-2019 17:52:57 EXTENSION WORK INSTRUCTOR by Yanci Pimentel M.D. [id number]
[2019-04-25] MEDS: levofloxacin-dextrose 5 % 750 MG/150 ML PREMIX 150 MG IV (13:46)
--- NOTE | 2019-04-25 14:31 | CTR_ITS ---
PROCEDURE INFORMATION: Exam: CT Angiography Chest With Contrast Exam date and time: 04/25/2019 3:17 PM Age: 74 years old Clinical indication: Shortness of breath; Prior surgery; Surgery date: 6+ months; Surgery type: Port; Additional info: Dyspnea TECHNIQUE: Imaging protocol: Computed tomographic angiography of the chest with intravenous contrast. 3D rendering: MIP and/or 3D reconstructed images were created by the technologist. Total DLP: 594.89 mGy-cm Radiation optimization: All CT scans at this facility use at least one of these dose optimization techniques: automated exposure control; mA and/or kV adjustment per patient size (includes targeted exams where dose is matched to clinical indication); or iterative reconstruction. Contrast material: OMNI 350; Contrast volume: 95 ml; Contrast route: IV; COMPARISON: CT chest w con* [id number] 12/21/2018 11:02 AM FINDINGS: Pulmonary arteries: There is no pulmonary embolus. The large right hilar mass is narrowing and occluding many of the branches of the proximal right pulmonary artery due to interval growth and mass effect just inferior to the randall. For example on image 223 of series 2, the AP measurement of the mass is 3.7 cm and the adjacent bronchi are obliterated/occluded. This image also demonstrates more mass effect on the posterior aspect of the right pulmonary artery. Image 195 the same series also demonstrates the mass protruding into the right mainstem bronchus with marked narrowing of the origin the right mainstem bronchus new since the prior exam. Aorta: Unremarkable. No aortic aneurysm. No aortic dissection. Lungs: See Mediastinum Finding. Pleural space: There is a small right pleural effusion. Heart: Tiny pericardial effusion is unchanged. Mediastinum: The large cavitary mass communicating with the right mainstem bronchus right lung lateral to the hilum is again identified. Soft tissue component surrounding the cavitation is larger having an AP measurement of 7.1 cm image 25 today compared to 6.4 cm previously. Adjacent volume loss and airspace pneumonitis/infiltrate is increasing in the right lung especially in the right middle lobe and right lower lobe. There is more mucous plugging and pneumonitis especially in the right lower lobe. There is much greater atelectasis in the right middle lobe. Calcified granulomas and mild volume loss in the left lung are noted. There is a small hiatal hernia. Pleural-based masslike density versus consolidation is a larger rounded masslike appearance lateral inferior to the hilum image 27 measuring approximately 5.4 by 4.4 cm today compared to 3.3 x 3.7 cm at the same level previously. Lymph nodes: Unremarkable. No enlarged lymph nodes. Bones/joints: Unremarkable. No acute fracture. Soft tissues: See Mediastinum Finding. CT/CT angio chest PE protcl [id number] IMPRESSION: 1. There is no pulmonary embolus. 2. Marked enlargement of the right hilar mass with more narrowing of the right pulmonary artery. Mass is also protruding into the right mainstem bronchus. Enlarging right pleural base mass/consolidation is noted. There is also increasing pneumonitis, mucous plugging and atelectasis in the right middle lobe and right lower lobe compared to the prior study. Radiation Dose CTDIVOL = (mGy): DLP = 594.89 (mGy-cm)
--- NOTE | 2019-04-25 15:02 | P.HP_ITS ---
Providers/Chief Complaint Primary Care Provider: Juhi Pro Chief Complaint: SOB/CA pt History of Present Illness Yogesh Vazquez is a 74 year old male with non-small cell lung cancer, currently undergoing chemotherapy, status post radiation therapy to the right lung, COPD, not normally on oxygen, has a nebulizer at home, DM 2, recently quit smoking about 1 month ago, CAD, CHF, HLD, HTN, s blood pressures have been very variable recently was sent to emergency department by his oncologist who was concerned about his breathing. He reports he has been gradually getting more short of breath. In ER noted to be tachycardic, heart rate 128, sinus rhythm. He is having some discomfort in the right upper chest. Reports persistent dry cough without any phlegm production. He is not normally on oxygen, in ER saturating mid 90s on 2 L by nasal cannula. Chest x-ray with increasing parenchymal opacity with signs of volume loss in the right upper lung. Possibly neoplasm, pneumonia, radiation pneumonitis/fibrosis. Admission requested for additional management of pneumonia. Blood pressure is soft, but has been stable, and patient this time does not want intubation or CPR, but wants this to be discussed should it become necessary in the future stating he does not want to be locked into anything at this time. He understands that in emergency we may not have a chance to ask him, and will give things additional thought, let us know if there is any changes. Review of Systems Const: Denies: fever, chills, body aches or malaise Eyes: Denies: change in vision or eye redness ENMT: Denies: throat pain, oral sores/lesions or ear pain Card: Reports: shortness of breath on exertion and other (Chest discomfort right upper lung zone); Denies: edema or pre-syncope Resp: Reports: shortness of breath and non-productive cough; Denies: productive cough, change in phlegm color or coughing up blood GI: Denies: abdominal pain, nausea, vomiting, diarrhea, constipation, blood in stool or black tarry stool : Denies: flank pain, difficulty urinating, urinary frequency or blood in urine Musc: Denies: back pain, joint swelling or redness Skin/Breast: Denies: rash, sores or new lesion Neuro: Denies: headache, numbness in extremities, weakness in extremities, dizziness, confusion or seizure-like activity Endo: Denies: excessive urination or excessive thirst Dariel/Lymph: Denies: easy bleeding or purpura All/Imm: Denies: hives, throat swelling or tongue swelling Medications/Allergies Home Medications Medication Instructions Recorded Confirmed Last Taken Type aspirin 81 mg PO DAILY 04/25/19 04/25/19 04/18/19 History budesonide 2 ml INHALATION QID PRN 04/25/19 04/25/19 04/25/19 History ipratropium-albuterol 3 ml INHALATION BID PRN 04/25/19 04/25/19 04/25/19 History prochlorperazine maleate 10 mg PO Q4H PRN 04/25/19 04/25/19 Unknown History Allergies Allergy/AdvReac Type Severity Reaction Status Date / Time No Known Allergies Allergy Verified 04/25/19 11:16 PFSH Acute PFSH: Statuses (acute, chronic, etc) shown below reflect problem list status as previously entered and may not be historically accurate Medical History CAD (coronary artery disease) (Acute) CHF (congestive heart failure) (Acute) COPD (chronic obstructive pulmonary disease) (Acute) HLD (hyperlipidemia) (Acute) HTN (hypertension) (Acute) NSCLC of right lung (Acute) Restrictive lung disease (Acute) Surgical History Hx of hernia repair (Acute) Stented coronary artery (Acute) Family History Father CHF (congestive heart failure) Sister Cancer Mother Heart disease Social History Smoking and tobacco status: former smoker Quit status (tobacco): has quit using tobacco Year quit tobacco: 1 month ago Alcohol intake: never Substance/Drug Use: never Lives independently: Yes Household members: other Details: Son lives next door Marital status: / Current occupational status: retired Vitals/I&O/Wt Last Vital Signs Temp 99.1 F 04/25/19 11:11 Pulse 128 H 04/25/19 11:49 Resp 18 04/25/19 11:46 BP 103/74 04/25/19 11:11 Pulse Ox 96 04/25/19 11:46 Weight last 48 hrs Weight 68.039 kg Physical Exam Const: COMMON NORMALS: no apparent distress and oriented x3 HENMT: COMMON NORMALS: oropharynx normal Neck/C-Spine: COMMON NORMALS: no JVD Resp: AUSCULTATION: crackles Laterality: right and diminished lung sounds (On the right) Cardio: COMMON NORMALS: no JVD, regular rhythm, S1 normal heart sound, S2 normal heart sound and no murmurs RATE: tachycardic RHYTHM: regular rhythm HEART SOUNDS: S1 normal and S2 normal PERIPHERAL PULSES: other (Port left chest) GI: COMMON NORMALS: normal to inspection, nondistended, normoactive bowel sounds, soft to palpation and non-tender PALPATION: Yes soft Extremity: COMMON NORMALS: no joint enlargement and no pedal edema Neuro: COMMON NORMALS: oriented x3 and moves all extremities Skin: COMMON NORMALS: no rashes or lesions noted GENERAL SKIN EXAM: no rashes or lesions noted Data : 04/25/19 11:30 04/25/19 11:30 A&P Assessment and plan (1) Pneumonia: Right upper lobe. Concern for possible postobstructive process, possibly radiation pneumonitis. Not in sepsis. Acute hypoxic respiratory failure, PO2 66.7 despite 2 L nasal cannula. With sinus tachycardia, soft blood pressure, nonproductive cough, underlying malignancy pending assessment by CTA to rule out PE. Continue antibiotic coverage with Levaquin, Zosyn, will add vancomycin due to concern for possible postobstructive process. Follow blood culture. Influenza is negative. Assess urine bacterial antigens. Status: Acute Code(s): J18.9 - Pneumonia, unspecified organism (2) COPD (chronic obstructive pulmonary disease): Currently does not appear in exacerbation. Not normally on oxygen. Has a nebulizer at home. Continue albuterol, Symbicort. Status: Acute Code(s): J44.9 - Chronic obstructive pulmonary disease, unspecified (3) NSCLC of right lung: Status post radiation therapy, currently undergoing chemotherapy with Dr. Mcarthur. Continue follow-up after discharge. Status: Acute Code(s): C34.91 - Malignant neoplasm of unspecified part of right bronchus or lung Additional A&P Information Recently quit smoking, about 1 month ago. Attestations Medical Necessity Statement*: Admission of over 2 midnights is going to be needed for assessment of management of pneumonia, hypoxia in the setting of lung cancer. Coding Level of Care Code Acute Home Delivery Driver for [facility] Fwd Diagnoses Pneumonia J18.9 COPD (chronic obstructive pulmonary disease) J44.9 NSCLC of right lung C34.91
[2019-04-25] MEDS: piperacillin-tazobactam 3.375 GM in sodium chloride 0.9% (plus) 50 ML IV ×2 (15:23→19:58)
[2019-04-25] MEDS: iohexol 350 mg/mL 100 mL Btl IV (15:56)
[2019-04-25] MEDS: vancomycin 1,000 MG in sodium chloride 0.9% 250 ML 250 MG IV (17:42)
--- NOTE | 2019-04-25 17:44 | PC.PHAR ---
VANCOMYCIN 1000MG Q 12 H PER PHARMACY PROTOCOL Pharmacokinetic dosing service Objective: Patient: Floor: Age: 74 yo Serum creatinine: 0.9 mg/dL Height: 72.0 Inches Weight (kg): 68 Assessment: IBW (kg): 77.60 Dosing wt(kg): 68 Estimated Creatinine clearance (ml/min): 69.3 CRCL method: Cockcroft and Gault using ibw(default). Drug selected: Vancomycin Loading dose (mg): Vd (liters): 47.6 (factor used: 0.7 L/kg) [place] (hr-1): 0.062 Half life (hrs): 11.18 CLvanco= 2.951 L/hr Recommended dose: 1000 mg Interval: 12 hrs Infusion time (hrs): 1 Predicted peak (mcg/mL): 38.8 Predicted trough (mcg/mL): 19.62 Total body weight is being used for vancomycin dosing. Recommendations: Give Vancomycin 1000 mg q 12 hrs with an expected Cpeak of 38.8 mcg/ml and an expected Ctrough of 19.62 mcg/ml Thank you for the consult, will continue to follow.
[2019-04-25] MEDS: enoxaparin 40 mg/0.4 mL Syringe SUBCUT (17:48)
[2019-04-25] MEDS: budesonide 0.5 mg/2 mL Neb INHALATION (18:17)
[2019-04-26] VITALS (14 sets, daily range): BP systolic 92–110; BP diastolic 52–67; PULSE 68–88; RESP 16–25; TEMP 34.8–36.9; O2SAT 92–98
[2019-04-26] MEDS: piperacillin-tazobactam 3.375 GM in sodium chloride 0.9% (plus) 50 ML IV ×3 (03:49→21:47)
[2019-04-26] MEDS: vancomycin 1,000 MG in sodium chloride 0.9% 250 ML 250 MG IV ×2 (05:57→18:12)
[2019-04-26 06:29] LABS: Hematocrit 30.5 % (42.0-52.0); Hemoglobin 9.7 g/dL (11.7-16.6); Lymphocytes # 0.3 10^3/uL (0.8-4.8); Lymphocytes % 14.1 %; Mean Corpuscular HGB Conc 31.8 g/dL (30.0-36.0); Mean Corpuscular Hemoglobin 25.3 pg (28.0-34.0); Mean Corpuscular Volume 79.6 fL (80-94); Monocytes # 0.3 10^3/uL (0.2-0.9); Monocytes % 16.7 %; Neutrophils # 1.3 10^3/uL (1.8-7.7); Neutrophils % 67.6 %; Nucleated Red Blood Cells % 0 %; Platelet Count 465 10^3/cmm (130-400); Red Blood Count 3.83 10^6/uL (4.1-5.3); Red Cell Distribution Width 17.1 % (12.1-15.1); White Blood Count 1.9 10^3/uL (4.0-10.0)
[2019-04-26 06:47] LABS: Alanine Aminotransferase 11 U/L (0-41); Albumin Level 2.9 g/dL (3.5-5.2); Alkaline Phosphatase 73 IU/L (40-130); Anion Gap 18.1 (5-19); Aspartate Amino Transferase 14 U/L (0-40); Blood Urea Nitrogen 22 mg/dL (8-23); Carbon Dioxide 21 mmol/L (22-29); Chloride 93 mmol/L (98-107); Globulin 3.5 g/dL (1.3-4.6); Glucose 425 mg/dL (74-106); Potassium 5.1 mmol/L (3.5-5.1); Sodium 127 mmol/L (136-145); Total Bilirubin 0.2 mg/dL (0.15-1.2); Total Protein 6.4 g/dL (6.6-8.7)
[2019-04-26] MEDS: ipratropium-albuterol 3 mL Neb INHALATION ×4 (07:37→19:19)
[2019-04-26] MEDS: budesonide 0.5 mg/2 mL Neb INHALATION ×2 (07:37→19:19)
[2019-04-26] MEDS: aspirin 81 mg Chew Tablet PO (08:02)
[2019-04-26] MEDS: levofloxacin-dextrose 5 % 750 MG/150 ML PREMIX 150 MG IV (13:36)
[2019-04-26 17:04] LABS: Glucose Point of Care 457 mg/dL (70-110)
[2019-04-26] MEDS: enoxaparin 40 mg/0.4 mL Syringe SUBCUT (18:12)
--- NOTE | 2019-04-26 19:08 | PM.PN ---
Subjective Subjective: Interval history: He is feeling somewhat better. He is still coughing. Requiring oxygen. Vitals/I&O/Wt Last Vital Signs Temp 97.7 F 04/26/19 11:06 Pulse 83 04/26/19 16:00 Resp 18 04/26/19 16:00 BP 94/63 04/26/19 16:00 Pulse Ox 96 04/26/19 16:00 04/26/19 04/26/19 04/26/19 06:59 14:59 22:59 Intake Total 350 / 720 900 / 900 240 / 1140 Output Total 500 / 500 220 / 220 300 / 520 Balance -150 / 220 680 / 680 -60 / 620 Weight last 48 hrs Weight 64.274 kg Weight 68.039 kg Physical Exam Const: COMMON NORMALS: no apparent distress and oriented x3 GENERAL APPEARANCE: frail appearing NUTRITIONAL APPEARANCE: thin ORIENTATION/CONSCIOUSNESS: Yes awake HENMT: COMMON NORMALS: oropharynx normal Neck/C-Spine: COMMON NORMALS: no JVD Resp: COMMON NORMALS: normal respiratory effort AUSCULTATION: crackles Laterality: right and diminished lung sounds (On the right) on the right Cardio: COMMON NORMALS: no JVD, regular rhythm, S1 normal heart sound, S2 normal heart sound and no murmurs RATE: tachycardic RHYTHM: regular rhythm HEART SOUNDS: S1 normal and S2 normal PERIPHERAL PULSES: other (Port left chest) GI: COMMON NORMALS: normal to inspection, nondistended, normoactive bowel sounds, soft to palpation and non-tender PALPATION: Yes soft Extremity: COMMON NORMALS: no joint enlargement and no pedal edema Neuro: COMMON NORMALS: oriented x3 and moves all extremities Skin: COMMON NORMALS: no rashes or lesions noted GENERAL SKIN EXAM: no rashes or lesions noted Data : 04/26/19 06:07 04/26/19 06:07 Micro: Microbiology 04/25/19 16:24 Blood Culture - Preliminary Blood NEGATIVE TO DATE 04/25/19 13:16 Blood Culture - Preliminary Blood NEGATIVE TO DATE A&P Assessment and plan (1) Pneumonia: Right lung progression of malignancy, with endobronchial invasion of right mainstem bronchus, with mucus, pneumonia. Discussed with pulmonology as well his oncologist. He is currently on palliative immunotherapy, recently lots where initiation of palliative chemotherapy, however, his poor functional status and overall condition have been a barrier, and oncology is still considering whether this would be even an option as opposed to discussing hospice care. Regarding radiation therapy, he is undergone a full course of radiation previously, and due to this, as well as his overall condition it is less likely that he will be candidate for additional radiation therapy. His oncologist will discuss with radiation oncologist regarding this possibility. He is currently with some mild neutropenia, absolute neutrophil count 1300. We will continue antibiotic currently by IV. Reverse isolation. Recheck blood counts in the morning. If improving, he remained stable, may transition to oral antibiotic, follow-up with oncology and off this. CTA without sign of PE. Will clear require oxygen discharge. Follow blood culture. Influenza is negative. Assess urine bacterial antigens. Status: Acute Code(s): J18.9 - Pneumonia, unspecified organism (2) COPD (chronic obstructive pulmonary disease): Currently does not appear in exacerbation. Not normally on oxygen. Has a nebulizer at home. Continue albuterol, Symbicort. Status: Acute Code(s): J44.9 - Chronic obstructive pulmonary disease, unspecified (3) NSCLC of right lung: Status post radiation therapy, currently undergoing chemotherapy with Dr. Mcarthur. Continue follow-up after discharge. Status: Acute Code(s): C34.91 - Malignant neoplasm of unspecified part of right bronchus or lung Additional A&P Information Recently quit smoking, about 1 month ago. Attestations Medical Necessity Statement*: Continue admission for assessment of management of pneumonia in the setting of cancer, neutropenia. Coding Level of Care Code Acute Stone Spreader Operator for [facility] Fw Diagnoses Pneumonia J18.9 COPD (chronic obstructive pulmonary disease) J44.9 NSCLC of right lung C34.91
[2019-04-26 22:10] LABS: Glucose Point of Care 433 mg/dL (70-110)
[2019-04-27] VITALS (15 sets, daily range): BP systolic 90–108; BP diastolic 59–72; PULSE 80–130; RESP 18–36; TEMP 36.4–36.8; O2SAT 89–97
[2019-04-27] MEDS: ipratropium-albuterol 3 mL Neb INHALATION ×5 (02:27→19:51)
[2019-04-27 05:17] LABS: Hematocrit 31.9 % (42.0-52.0); Hemoglobin 9.9 g/dL (11.7-16.6); Lymphocytes # 0.4 10^3/uL (0.8-4.8); Lymphocytes % 5.5 %; Mean Corpuscular Hemoglobin 24.9 pg (28.0-34.0); Mean Corpuscular Volume 80.2 fL (80-94); Monocytes # 0.9 10^3/uL (0.2-0.9); Monocytes % 14.1 %; Neutrophils # 5.1 10^3/uL (1.8-7.7); Neutrophils % 79.8 %; Nucleated Red Blood Cells % 0 %; Platelet Count 591 10^3/cmm (130-400); Red Blood Count 3.98 10^6/uL (4.1-5.3); Red Cell Distribution Width 17.2 % (12.1-15.1); White Blood Count 6.4 10^3/uL (4.0-10.0)
[2019-04-27] MEDS: vancomycin 1,000 MG in sodium chloride 0.9% 250 ML 250 MG IV ×2 (05:21→18:49)
[2019-04-27] MEDS: piperacillin-tazobactam 3.375 GM in sodium chloride 0.9% (plus) 50 ML IV ×3 (05:22→21:24)
[2019-04-27 05:34] LABS: Alanine Aminotransferase 10 U/L (0-41); Alkaline Phosphatase 75 IU/L (40-130); Aspartate Amino Transferase 17 U/L (0-40); Blood Urea Nitrogen 26 mg/dL (8-23); Calcium 9.3 mg/dL (8.5-10.5); Carbon Dioxide 26 mmol/L (22-29); Chloride 99 mmol/L (98-107); Globulin 3.8 g/dL (1.3-4.6); Glucose 98 mg/dL (74-106); Sodium 136 mmol/L (136-145); Total Bilirubin 0.2 mg/dL (0.15-1.2); Total Protein 6.8 g/dL (6.6-8.7)
[2019-04-27 06:43] LABS: Glucose Point of Care 142 mg/dL (70-110)
[2019-04-27] MEDS: budesonide 0.5 mg/2 mL Neb INHALATION ×2 (08:43→19:51)
[2019-04-27] MEDS: aspirin 81 mg Chew Tablet PO (09:06)
--- NOTE | 2019-04-27 11:04 | XRR_ITS ---
PROCEDURE INFORMATION: Exam: XR Chest, 1 View Exam date and time: 04/27/2019 11:36 AM Age: 74 years old Clinical indication: Other: Hypoxia TECHNIQUE: Imaging protocol: XR of the chest Views: 1 view. COMPARISON: CR XR chest 1V portable [id number] 04/25/2019 11:45 AM FINDINGS: Tubes, catheters and devices: Mediport/chest port via the left subclavian approach with the tip projecting over the superior vena cava. Lungs: Severe emphysema Extensive opacity within the right mid lung/upper lobe of a masslike nature. Stable from the previous exam. Rule out carcinoma. Pleural space: Unremarkable. No pleural effusion. No pneumothorax. Heart/Mediastinum: Unremarkable. No cardiomegaly. Bones/joints: Unremarkable. XR/XR chest 1V portable [id number] IMPRESSION: Extensive opacity within the right mid lung/upper lobe of a masslike nature. Stable from the previous exam. Rule out carcinoma. Soft tissue prominence right infrahilar region concerning for adenopathy. Severe emphysema
[2019-04-27 11:53] LABS: Glucose Point of Care 267 mg/dL (70-110)
[2019-04-27] MEDS: levofloxacin-dextrose 5 % 750 MG/150 ML PREMIX 150 MG IV (13:20)
[2019-04-27 16:21] LABS: Glucose Point of Care 268 mg/dL (70-110)
--- NOTE | 2019-04-27 16:34 | PC.RESP ---
Patient given Pulmonary Rehab information.
--- NOTE | 2019-04-27 17:53 | P.PN_ITS ---
Subjective Subjective: Interval history: This morning he is more short of breath, coughing. Feeling some improvement after breathing treatment. Vitals/I&O/Wt Last Vital Signs Temp 97.8 F 04/27/19 15:41 Pulse 90 04/27/19 15:58 Resp 22 H 04/27/19 15:52 BP 108/72 04/27/19 15:41 Pulse Ox 94 04/27/19 15:52 04/27/19 04/27/19 04/27/19 06:59 14:59 22:59 Intake Total 290 / 1880 890 / 890 Output Total 550 / 1070 225 / 225 200 / 425 Balance -260 / 810 665 / 665 -200 / 465 Weight last 48 hrs Weight 64.41 kg Weight 64.274 kg Physical Exam Const: COMMON NORMALS: no apparent distress and oriented x3 GENERAL APPEARANCE: frail appearing NUTRITIONAL APPEARANCE: thin ORIENTATION/CONSCIOUSNESS: Yes awake HENMT: COMMON NORMALS: oropharynx normal Neck/C-Spine: COMMON NORMALS: no JVD Resp: COMMON NORMALS: normal respiratory effort AUSCULTATION: crackles Laterality: right, rhonchi, wheezes and diminished lung sounds (On the right) on the right Cardio: COMMON NORMALS: no JVD, regular rhythm, S1 normal heart sound, S2 normal heart sound and no murmurs RATE: tachycardic RHYTHM: regular rhythm HEART SOUNDS: S1 normal and S2 normal PERIPHERAL PULSES: other (Port left chest) GI: COMMON NORMALS: normal to inspection, nondistended, normoactive bowel sounds, soft to palpation and non-tender PALPATION: Yes soft Extremity: COMMON NORMALS: no joint enlargement and no pedal edema Neuro: COMMON NORMALS: oriented x3 and moves all extremities Skin: COMMON NORMALS: no rashes or lesions noted GENERAL SKIN EXAM: no rashes or lesions noted Data : 04/27/19 04:08 04/27/19 04:08 Micro: Microbiology 04/25/19 16:24 Blood Culture - Preliminary Blood NEGATIVE TO DATE 04/25/19 13:16 Blood Culture - Preliminary Blood NEGATIVE TO DATE A&P Assessment and plan (1) Pneumonia: This morning he is significantly worsened, with acute hypoxic respiratory failure, with much worse examination of the lungs, with wheezing, crackles, rhonchi, diminished air entry. Transient neutropenia did resolve. At this time he is receiving broad-spectrum coverage for suspected postobstructive pneumonia with progression of his malignancy. Added IV steroids, continue breathing treatments. Chest x-ray repeated with persistent right upper lobe opacities with masslike appearance. With right lung progression of malignancy, with endobronchial invasion of right mainstem bronchus, with mucus, pneumonia. Influenza was negative. CTA without sign of PE. Urine bacterial antigens ordered. We will add sputum culture. Discussed his presentation with pulmonology as well his oncologist on admission. He is currently on palliative immunotherapy, recently with plans for initiation of palliative chemotherapy, however, his poor functional status and overall condition have been a barrier, and oncology is still considering whether this would be even an option as opposed to discussing hospice care. Regarding radiation therapy, he is undergone a full course of radiation previously, and due to this, as well as his overall condition it is less likely that he will be candidate for additional radiation therapy. His oncologist will discuss with radiation oncology regarding this possibility. If improving, may transition to oral antibiotic, follow-up with oncology in the office. Will clear require oxygen to be ordered on discharge. Status: Acute Code(s): J18.9 - Pneumonia, unspecified organism (2) COPD (chronic obstructive pulmonary disease): With COPD exacerbation, with dyspnea, decreased air entry, wheezing. Not normally on oxygen. Has a nebulizer at home. Continue albuterol, Symbicort. Continue antibiotics. Started on IV steroid. Obtain sputum culture. Status: Acute Code(s): J44.9 - Chronic obstructive pulmonary disease, unspecified (3) NSCLC of right lung: Status post radiation therapy, currently undergoing chemotherapy with Dr. Mcarthur. Continue follow-up after discharge. Status: Acute Code(s): C34.91 - Malignant neoplasm of unspecified part of right bronchus or lung Additional A&P Information Recently quit smoking, about 1 month ago. Attestations Medical Necessity Statement*: Continue admission for assessment management of acute respiratory failure with hypoxia, postobstructive pneumonia with progression of malignancy, COPD exacerbation. Coding Level of Care Code Acute Lead Welder for [facility] Fwd Diagnoses Pneumonia J18.9 COPD (chronic obstructive pulmonary disease) J44.9 NSCLC of right lung C34.91
[2019-04-27] MEDS: enoxaparin 40 mg/0.4 mL Syringe SUBCUT (18:57)
[2019-04-27 21:20] LABS: Glucose Point of Care 360 mg/dL (70-110)
[2019-04-28] VITALS (15 sets, daily range): BP systolic 92–113; BP diastolic 60–67; PULSE 75–118; RESP 18–22; TEMP 36.4–36.8; O2SAT 90–99
[2019-04-28 04:29] LABS: Hematocrit 28.7 % (42.0-52.0); Lymphocytes # 0.3 10^3/uL (0.8-4.8); Lymphocytes % 8.4 %; Mean Corpuscular HGB Conc 31.4 g/dL (30.0-36.0); Mean Corpuscular Hemoglobin 24.7 pg (28.0-34.0); Mean Corpuscular Volume 78.8 fL (80-94); Mean Platelet Volume 9.7 fL (7.4-10.4); Monocytes # 0.2 10^3/uL (0.2-0.9); Monocytes % 6.2 %; Neutrophils # 2.6 10^3/uL (1.8-7.7); Neutrophils % 84.8 %; Nucleated Red Blood Cells % 0 %; Platelet Count 498 10^3/cmm (130-400); Red Blood Count 3.64 10^6/uL (4.1-5.3); Red Cell Distribution Width 17.3 % (12.1-15.1); White Blood Count 3.1 10^3/uL (4.0-10.0)
[2019-04-28 04:50] LABS: Alanine Aminotransferase 9 U/L (0-41); Albumin Level 2.6 g/dL (3.5-5.2); Alkaline Phosphatase 60 IU/L (40-130); Anion Gap 16.6 (5-19); Aspartate Amino Transferase 12 U/L (0-40); Blood Urea Nitrogen 15 mg/dL (8-23); Calcium 9.1 mg/dL (8.5-10.5); Carbon Dioxide 24 mmol/L (22-29); Chloride 100 mmol/L (98-107); Globulin 3.7 g/dL (1.3-4.6); Glucose 228 mg/dL (74-106); Potassium 4.6 mmol/L (3.5-5.1); Sodium 136 mmol/L (136-145); Total Bilirubin 0.2 mg/dL (0.15-1.2); Total Protein 6.3 g/dL (6.6-8.7)
[2019-04-28 04:51] LABS: Vancomycin Trough 16.3 ug/mL (10-15)
[2019-04-28] MEDS: vancomycin 1,000 MG in sodium chloride 0.9% 250 ML 250 MG IV (05:02)
[2019-04-28] MEDS: piperacillin-tazobactam 3.375 GM in sodium chloride 0.9% (plus) 50 ML IV ×3 (06:15→22:02)
[2019-04-28] MEDS: budesonide 0.5 mg/2 mL Neb INHALATION ×2 (07:22→20:22)
[2019-04-28] MEDS: ipratropium-albuterol 3 mL Neb INHALATION ×4 (07:22→20:22)
[2019-04-28] MEDS: aspirin 81 mg Chew Tablet PO (09:11)
[2019-04-28 10:39] LABS: Glucose Point of Care 370 mg/dL (70-110)
--- NOTE | 2019-04-28 11:58 | PC.SOCIAL ---
Pg 2 of IMM Pg 2 of IMM was explained to and signed by patient, copy was provided, and form placed in chart. He verbalized understanding and had no questions.
--- NOTE | 2019-04-28 13:15 | PM.PN ---
Subjective Subjective: Interval history: Yogesh reports he is feeling quite a bit better. He is still short of breath. Still wheezing. Medications: Reviewed: Yes Vitals/I&O/Wt Last Vital Signs Temp 97.6 F 04/28/19 12:00 Pulse 87 04/28/19 13:12 Resp 22 H 04/28/19 13:07 BP 94/66 04/28/19 12:00 Pulse Ox 94 04/28/19 13:07 04/27/19 04/28/19 04/28/19 22:59 06:59 14:59 Intake Total 750 / 1640 50 / 1690 970 / 970 Output Total 700 / 925 1200 / 2125 625 / 625 Balance 50 / 715 -1150 / -435 345 / 345 Weight last 48 hrs Weight 63.73 kg Weight 64.41 kg Physical Exam Narrative: EXAM NARRATIVE: General exam no apparent distress Cardiovascular regular in rhythm without murmur Lungs bilateral expiratory wheezes Abdomen is soft with positive bowel sounds Extremities no cyanosis clubbing or edema Data : 04/28/19 04:07 04/28/19 04:07 Micro: Microbiology 04/25/19 09:23 Legionella Urinary Antigen - Final Urine,Voided Bacterial Antigens - Final A&P Assessment and plan (1) Pneumonia: Currently on vancomycin, Levaquin, and Zosyn. He is improving. IV steroids added yesterday for COPD exacerbation Currently on pulmonary toilet Influenza negative Will need follow-up with oncology at discharge Will need home oxygen on discharge Discontinue vancomycin today to de-escalate antibiotics Status: Acute Code(s): J18.9 - Pneumonia, unspecified organism (2) COPD (chronic obstructive pulmonary disease): On IV steroids, pulmonary toilet, IV antibiotics. Reduce IV steroids today. Status: Acute Code(s): J44.9 - Chronic obstructive pulmonary disease, unspecified (3) NSCLC of right lung: Will need oncology follow-up on discharge Status: Acute Code(s): C34.91 - Malignant neoplasm of unspecified part of right bronchus or lung Additional A&P Information Past history of tobacco use recently quit Hopefully discharge tomorrow with home health Attestations Medical Necessity Statement*: Needs continued hospitalization for IV antibiotics secondary to pneumonia Coding Level of Care Code Acute Institutional Research Coordinator for [facility] Diagnoses Pneumonia J18.9 COPD (chronic obstructive pulmonary disease) J44.9 NSCLC of right lung C34.91
[2019-04-28] MEDS: levofloxacin-dextrose 5 % 750 MG/150 ML PREMIX 150 MG IV (14:04)
[2019-04-28 17:18] LABS: Glucose Point of Care 368 mg/dL (70-110)
[2019-04-28] MEDS: enoxaparin 40 mg/0.4 mL Syringe SUBCUT (17:47)
[2019-04-28 20:49] LABS: Glucose Point of Care 316 mg/dL (70-110)
[2019-04-29] VITALS (7 sets, daily range): BP systolic 95–108; BP diastolic 60–73; PULSE 79–100; RESP 18–20; TEMP 36.5–36.6; O2SAT 86–97
[2019-04-29 07:06] LABS: Glucose Point of Care 284 mg/dL (70-110)
[2019-04-29] MEDS: ipratropium-albuterol 3 mL Neb INHALATION (08:31)
[2019-04-29] MEDS: budesonide 0.5 mg/2 mL Neb INHALATION (08:31)
[2019-04-29] MEDS: piperacillin-tazobactam 3.375 GM in sodium chloride 0.9% (plus) 50 ML IV (08:44)
[2019-04-29] MEDS: aspirin 81 mg Chew Tablet PO (08:47)
--- NOTE | 2019-04-29 10:44 | P.DS_ITS ---
Discharge Providers Date of Admission: 04/25/19 13:55 Date of Discharge: 04/29/19 Attending Provider at Admission: Isaac Naqvi Attending Provider at Discharge: Zeyad Goins MD Primary Care Provider: Juhi Pro Diagnoses at Discharge Discharge Diagnosis (1) Pneumonia: Status: Acute Problem details: Improved. Discharged on 5 more days of Levaquin. Postobstructive pneumonia. (2) COPD (chronic obstructive pulmonary disease): Status: Acute Problem details: Exacerbation. Continue pulmonary toilet, prednisone as well for 5 days (3) NSCLC of right lung: Status: Acute Problem details: Follow-up with oncologist next week Reason for Visit Reason for Visit: Reason For Visit: SOB/CA pt Hospital Course Hospital Course: Patient presented to the hospital short of breath. He has underlying non-small cell lung carcinoma status post radiation. He was placed on oxygen, pulmonary toilet, Levaquin Zosyn and vancomycin and followed closely. During the course of his hospital stay he did improve, although significant wheezing developed for which steroids were started for COPD exacerbation. By April 29 he was feeling much better. He reported he was going to go home. We discussed a home oxygen evaluation prior to discharge and close follow-up with his primary care provider. Medicines were reviewed. Physical Exam Narrative: EXAM NARRATIVE: General exam no distress on oxygen Cardiovascular regular in rhythm Lungs diminished breath sounds right lung Abdomen is soft and positive bowel sounds Extremities no cyanosis clubbing or edema Discharge Data Data Completed and Pending: Completed Studies During Hospitalization Category Date Time Status CT angio chest PE protcl [id number] Stat Cat Scan 04/25/19 14:31 Completed XR chest 1V [place] ble [id number] Routine Exams 04/27/19 11:04 Completed XR chest 1V [place] ble [id number] Urgent Exams 04/25/19 11:22 Completed Pending at discharge Category Date Time Status Blood Culture Sta t Lab 04/25/19 13:16 Results Sputum Culture an d Gram Stain Routi ne Lab 04/27/19 18:00 Uncollected Labs from last 24 hours 04/29/19 04/28/19 04/28/19 06:42 20:46 17:07 POC Glucose 284 316 368 Vitals: Last Vital Signs Temp 97.7 F 04/29/19 08:00 Pulse 95 04/29/19 08:39 Resp 18 04/29/19 08:25 BP 108/70 04/29/19 08:00 Pulse Ox 95 04/29/19 08:25 Discharge Plan Discharge Patient Disposition: Home, Self-Care Condition: Stable Prescriptions: New budesonide 0.5 mg/2 mL Suspension For Nebulization 0.5 mg inhalation BID PRN (Reason: Shortness Of Breath) Qty: 120 RF: 0 ipratropium-albuterol 0.5 mg-3 mg(2.5 mg base)/3 mL Solution For Nebulization 3 ml inhalation QID.RESPIRATORY Qty: 360 RF: 0 prednisone 20 mg tablet 40 mg PO DAILY 5 Days Qty: 10 RF: 0 levofloxacin [Levaquin] 750 mg tablet 750 mg PO DAILY 5 Days Qty: 5 RF: 0 Continued prochlorperazine maleate 10 mg tablet 10 mg PO Q4H PRN (Reason: Nausea) RF: 0 aspirin 81 mg Tablet,Chewable 81 mg PO DAILY RF: 0 Discontinued ipratropium-albuterol 0.5 mg-3 mg(2.5 mg base)/3 mL solution for nebulization 3 ml INHALATION BID PRN (Reason: Shortness Of Breath) RF: 0 budesonide 0.5 mg/2 mL suspension for nebulization 2 ml inhalation QID PRN (Reason: Shortness Of Breath) RF: 0 Discharge Orders: Discharge Order (Routine); Ordered 04/29/19 Ordered By: Zeyad Goins Referrals: [facility] [Other] [facility] [Outside] Juhi Pro [Primary Care Provider] - Shanda Mcarthur MD [Staff Physician] - 4-7 days Discharge Diet: Regular Discharge Activity: Increase activity as tolerated Activity Restrictions/Additional Instructions: Home oxygen evaluation prior to discharge. Follow-up with oncology next week Follow-up with primary care provider 3 to 5 days Take all medicine as prescribed Discharge Attestations Time Spent in Discharge Care*: greater than 30 min Quality Metrics Clinical Quality Measures During this hospital stay, did patient experience: None Coding Level of Care Code Acute Institutional Nutrition Consultant for [facility] Fwd Diagnoses Pneumonia J18.9 COPD (chronic obstructive pulmonary disease) J44.9 NSCLC of right lung C34.91
[2019-04-29 11:09] LABS: Glucose Point of Care 368 mg/dL (70-110)
--- NOTE | 2019-04-29 13:42 | PC.NURSE ---
Discharge information given per physician's orders. Patient verbalized understanding and did not have any further questions.
[2019-05-04 10:12] LABS: Glucose Point of Care 306 mg/dL (70-110)
== END 2019-04-29 14:15 | disposition home or self-care (01) | DRG 193 ==
LOC: ER 15:17 → MEDSURG 15:19
PROVIDERS: Internal Medicine; Admitting Provider Internal Medicine; Emergency Provider Family Medicine; PCP Nurse Practitioner Family; Visit Provider Internal Medicine
DX: J18.9 Pneumonia, unspecified organism (principal); J96.01 Acute respiratory failure with hypoxia; C34.91 Malignant neoplasm of unspecified part of right bronchus or lung; J44.1 Chronic obstructive pulmonary disease with (acute) exacerbation; J44.0 Chronic obstructive pulmonary disease with (acute) lower respiratory infection; E11.9 Type 2 diabetes mellitus without complications; I25.10 Atherosclerotic heart disease of native coronary artery without angina pectoris; I11.0 Hypertensive heart disease with heart failure; I50.9 Heart failure, unspecified; E78.5 Hyperlipidemia, unspecified; Z87.891 Personal history of nicotine dependence
CPT/HCPCS: 12345; 36415; 36416; 36600; 71045; 71275; 80053; 80202; 82805; 82962; 83735; 83880; 85025; 86403; 87040; 87449; 87804; 93005; 94640; 94664; 96365; 96366; 96372; 96374; 96375; 97161; 97530; 99281; J1642; J1650; J1815; J1956; J2543; J2930; J3370; J7040; J7050; J7626; Q9967

== ENCOUNTER 2019-04-30 17:30 | Inpatient (IN) | payer MEDICARE, SELFPAY ==
[2019-04-30] VITALS (9 sets, daily range): BP systolic 94–125; BP diastolic 74–80; PULSE 66–112; RESP 22–36; TEMP 36.4; O2SAT 92–97; BMI 20.7
--- NOTE | 2019-04-30 17:41 | XRR_ITS ---
PROCEDURE INFORMATION: Exam: XR Chest, 1 View Exam date and time: 04/30/2019 5:41 PM Age: 74 years old Clinical indication: Dyspnea; Patient HX: Ex smoker, lung cancer, per patient emphysema and copd; Additional info: Cp TECHNIQUE: Imaging protocol: XR of the chest Views: 1 view. COMPARISON: CR XR chest 1V portable [id number] 04/27/2019 11:25 AM, CT a of the chest 04/25/2019 FINDINGS: Tubes, catheters and devices: Left chest port is in unchanged position. Lungs: Severe emphysematous change is again noted. Stable appearance of the right upper lung and right perihilar mass with associated traction bronchiectasis, better reflected on CT. No new focal consolidation. Pleural space: There is mild unchanged blunting of the costophrenic angles. No discernible pneumothorax. Heart/Mediastinum: No cardiomegaly. Bones/joints: Unremarkable for technique. XR/XR chest 1V portable [id number] IMPRESSION: 1. No radiographic evidence of an acute cardiopulmonary process. 2. Stable appearance of the right upper lung/perihilar mass.
--- NOTE | 2019-04-30 17:41 | ECG_ITS ---
Measurements Intervals [place] Rate: 0 P: ND: 0 QRS: 0 QRSD: 0 T: 0 QT: 0 QTc: 0 Sinus tachycardia with a rate of 110 INDETERMINATE AXIS ABNORMAL RHYTHM ECG Lead reversal in V2 V3 WARNING: DATA QUALITY MAY AFFECT INTERPRETATION Compared to ECG 04/25/2019 11:18:35 Indeterminate axis now present Baseline artifact. Need to repeat the study Electronically Signed On 05-01-2019 15:40:57 CAR RESTORER by Luis Spencer M.D. [email or web address]
[2019-04-30 18:05] LABS: ABG PCO2 35.7 mmHg (35-45); ABG PH Result 7.48 (7.35-7.45); Arterial Blood Gas Hematocrit 33.6 % (42-52); Base Excess ABG 2.7 mmol/L (-2.0-2.0); Blood Gas Allen Test Pos; Blood Gas Operator Identificat amh; Blood Gas Sample Site Radial, left; Blood Gas Sample Type Arterial; Carboxyhemoglobin 0.8 %THgb (0.4-20.1); HCO3 ABG 26.2 mmol/L (22-26); HGB O2 Sat 94.3 % (95-100); Methemoglobin 0.8 % (0.4-1.5); Oxygen Device NC; PO2 ABG 72.8 mmHg (80.0-100.0)
[2019-04-30 18:16] LABS: Basophils % 0.1 %; Hematocrit 36.1 % (42.0-52.0); Lymphocytes # 0.5 10^3/uL (0.8-4.8); Lymphocytes % 6.6 %; Mean Corpuscular HGB Conc 30.5 g/dL (30.0-36.0); Mean Corpuscular Hemoglobin 24.7 pg (28.0-34.0); Mean Corpuscular Volume 81.1 fL (80-94); Monocytes # 1.5 10^3/uL (0.2-0.9); Monocytes % 19.3 %; Neutrophils # 5.3 10^3/uL (1.8-7.7); Neutrophils % 70.3 %; Nucleated Red Blood Cells % 0 %; Platelet Count 609 10^3/cmm (130-400); Red Blood Count 4.45 10^6/uL (4.1-5.3); Red Cell Distribution Width 18.6 % (12.1-15.1); White Blood Count 7.6 10^3/uL (4.0-10.0)
--- NOTE | 2019-04-30 18:19 | ED_ITS ---
Entered by Karina Garza, acting as scribe for Apr 30, 2019 17:30 HPI - SOB/Dyspnea General: Chief Complaint: Shortness of Breath/Dyspnea Stated Complaint: SOB Time Seen by Provider: 04/30/19 17:48 Source: patient and family History of Present Illness: MD elicited complaint: shortness of breath and cough Onset (ago): day(s) (several days) Context: recent illness (pt was discharged yesterday from [facility], DX with same symptoms) and occurred during exertion Timing: constant Severity: moderate Exacerbating factors: exertion, movement and coughing Relieving factors: nothing Known history of: recurrent pneumonia Associated symptoms: Reports cough, nausea and orthopnea; Deny abdominal pain, chest pain, dizziness, palpitations or vomiting Treatment prior to arrival: oxygen (3L) Related Data: Home oxygen amount: 3 liters Review of Systems Eyes: Denies: change in vision or blurry vision ENMT: Reports: post nasal drip; Denies: facial/sinus pain Card: Reports: edema, shortness of breath on exertion and shortness of breath when lying down; Denies: chest pain, palpitations, irregular heart rhythm or swelling of feet/ankles GI: Reports: nausea; Denies: abdominal pain, vomiting, blood in stool or black tarry stool : Denies: difficulty urinating, painful urination or blood in urine Musc: Reports: back pain; Denies: redness or joint warmth Skin/Breast: Denies: rash, itching or redness Neuro: Denies: headache, dizziness, vertigo, confusion or seizure-like activity Psych: Denies: anxiety PFSH ED PFSH: Statuses (acute, chronic, etc) shown below reflect problem list status as previously entered and may not be historically accurate Medical History (Updated 04/30/19 @ 20:38 by Yanci London MD) CAD (coronary artery disease) (Acute) CHF (congestive heart failure) (Acute) COPD (chronic obstructive pulmonary disease) (Acute) HLD (hyperlipidemia) (Acute) HTN (hypertension) (Acute) Myocardial infarction (Acute ~1996) NSCLC of right lung (Acute) Restrictive lung disease (Acute) Surgical History (Updated 04/30/19 @ 20:06 by Yanci London MD) Hx of hernia repair (Acute) 2008 Stented coronary artery (Acute) 1996 Family History Father CHF (congestive heart failure) Sister Cancer Mother Heart disease Social History Smoking and tobacco status: former smoker Quit status (tobacco): has quit using tobacco Year quit tobacco: 1 month ago Alcohol intake: never Lives independently: Yes Household members: other Details: Son lives next door Marital status: / Current occupational status: retired Physical Exam Const: GENERAL APPEARANCE: well developed ORIENTATION/CONSCIOUSNESS: Yes oriented to person, Yes oriented to place and Yes oriented to time HENMT: COMMON NORMALS: normocephalic, external ears normal and external nose normal HEAD & SCALP: normocephalic; no scalp tenderness FACE & SINUS: normal facial exam NOSE: external nose normal and no nasal discharge EXTERNAL EAR: Yes external ears normal MOUTH: tongue normal TEETH & GINGIVA: no abnormal tooth and associated gingiva THROAT: posterior oropharynx normal; no peritonsillar mass Eye: COMMON NORMALS: PERRL, EOMs intact bilaterally and conjunctivae normal EYELID: eyelids normal CONJUNCTIVA: Yes conjunctivae normal PUPIL: Yes PERRL Neck/C-Spine: COMMON NORMALS: full ROM GENERAL: No tracheal deviation CERVICAL SPINE: Yes normal cervical lordosis and No cervical spine tenderness Chest: COMMONS NORMALS: inspection of chest normal CHEST: No tenderness Cardio: COMMON NORMALS: regular rate and regular rhythm RATE: regular rate RHYTHM: regular rhythm HEART SOUNDS: no murmurs PERIPHERAL PULSES: radial pulses present GI: INSPECTION: No abdominal distension AUSCULTATION: No hyperactive bowel sounds and No hypoactive bowel sounds PALPATION: No guarding and No rigid PERCUSSION: no dullness to percussion and no tympanic to percussion : COMMON NORMALS: Yes no CVA tenderness BLADDER/KIDNEY EXAM: Yes no CVA tenderness Back/Pelvis: COMMON NORMALS: no CVA tenderness Neuro: SENSORIUM/ORIENTATION: Yes oriented to person, Yes oriented to place and Yes oriented to time Psych: COMMON NORMALS: mental status grossly normal Skin: COMMON NORMALS: no rashes or lesions noted GENERAL SKIN EXAM: no rashes or lesions noted Course ED course: 74-year-old male with COPD and non-small cell cancer of the lung. He was discharged from the hospital yesterday. He re-presents today with shortness of breath and cough. He is breathing up to 35 times per minute. His O2 demand has increased, as he is up to 5 L now. He is wheezing on exam. Somewhat improved after breathing treatment here. He will be admitted for steroids and breathing treatment. Vital Signs: Vital signs: Vital Signs Temperature 97.6 F 04/30/19 22:00 Pulse Rate 98 04/30/19 23:02 Respiratory Rate 24 H 04/30/19 22:23 Blood Pressure 125/74 04/30/19 22:00 Pulse Oximetry 97 04/30/19 23:02 MDM - SOB/Dyspnea Lab Data: Labs: Lab Results 04/30/19 04/30/19 04/30/19 Range/Units 17:55 17:55 17:55 WBC 7.6 (4.0-10.0) 10^3/ uL RBC 4.45 (4.1-5.3) 10^6/u L Hgb 11.0 L (11.7-16.6) g/dL Hct 36.1 L (42.0-52.0) % MCV 81.1 (80-94) fL MCH 24.7 L (28.0-34.0) pg MCHC 30.5 (30.0-36.0) g/dL RDW 18.6 H (12.1-15.1) % Plt Count 609 H (130-400) 10^3/c mm MPV 10.0 (7.4-10.4) fL Neut % (Auto) 70.3 % Lymph % (Auto) 6.6 % Liberty % (Auto) 19.3 % Eos % (Auto) 0.0 % Baso % (Auto) 0.1 % Neut # (Auto) 5.3 (1.8-7.7) 10^3/u L Lymph # (Auto) 0.5 L (0.8-4.8) 10^3/u L Liberty # (Auto) 1.5 H (0.2-0.9) 10^3/u L Eos # (Auto) 0.0 (0.0-0.8) 10^3/u L Baso # (Auto) 0.0 (0.0-0.1) 10^3/u L Nucleated RBC % (a uto) 0 % Nucleated RBCs # 0.0 /100WBC PT 13.80 H (10.5-13.3) SECO NDS INR 1.03 (0.8-1.2) Specimen Type Arterial Sample Site Radial, left ABG pH 7.48 H (7.35-7.45) ABG pCO2 35.7 (35-45) mmHg ABG pO2 72.8 L (80.0-100.0) mmH g ABG HCO3 26.2 H (22-26) mmol/L ABG Base Excess 2.7 H (-2.0-2.0) mmol/ L Sean Test Pos Hematocrit 33.6 L (42-52) % Hgb O2 Saturation 94.3 L (95-100) % Carboxyhemoglobin 0.8 (0.4-20.1) %THgb Methemoglobin 0.8 (0.4-1.5) % Total Hemoglobin 11.0 L (14-18) g/dL O2 Delivery Device Nc O2 Liters/Min 5.0 % FiO2 40.0 % Sanipractic Physician ID amh Sodium (136-145) mmol/L Potassium (3.5-5.1) mmol/L Chloride (98-107) mmol/L Carbon Dioxide (22-29) mmol/L Anion Gap (5-19) BUN (8-23) mg/dL Creatinine (0.7-1.2) mg/dL Glucose (74-106) mg/dL Calcium (8.5-10.5) mg/dL Total Bilirubin (0.15-1.2) mg/dL AST (0-40) U/L ALT (0-41) U/L Alkaline Phosphata se (40-130) IU/L NT-Pro-B Natriuret Pep (0-125) pg/mL Total Protein (6.6-8.7) g/dL Albumin (3.5-5.2) g/dL Globulin (1.3-4.6) g/dL 04/30/19 Range/Units 17:55 WBC (4.0-10.0) 10^3/ uL RBC (4.1-5.3) 10^6/u L Hgb (11.7-16.6) g/dL Hct (42.0-52.0) % MCV (80-94) fL MCH (28.0-34.0) pg MCHC (30.0-36.0) g/dL RDW (12.1-15.1) % Plt Count (130-400) 10^3/c mm MPV (7.4-10.4) fL Neut % (Auto) % Lymph % (Auto) % Liberty % (Auto) % Eos % (Auto) % Baso % (Auto) % Neut # (Auto) (1.8-7.7) 10^3/u L Lymph # (Auto) (0.8-4.8) 10^3/u L Liberty # (Auto) (0.2-0.9) 10^3/u L Eos # (Auto) (0.0-0.8) 10^3/u L Baso # (Auto) (0.0-0.1) 10^3/u L Nucleated RBC % (a uto) % Nucleated RBCs # /100WBC PT (10.5-13.3) SECO NDS INR (0.8-1.2) Specimen Type Sample Site ABG pH (7.35-7.45) ABG pCO2 (35-45) mmHg ABG pO2 (80.0-100.0) mmH g ABG HCO3 (22-26) mmol/L ABG Base Excess (-2.0-2.0) mmol/ L Sean Test Hematocrit (42-52) % Hgb O2 Saturation (95-100) % Carboxyhemoglobin (0.4-20.1) %THgb Methemoglobin (0.4-1.5) % Total Hemoglobin (14-18) g/dL O2 Delivery Device O2 Liters/Min % FiO2 % Sanipractic Physician ID Sodium 138 (136-145) mmol/L Potassium 4.4 (3.5-5.1) mmol/L Chloride 99 (98-107) mmol/L Carbon Dioxide 27 (22-29) mmol/L Anion Gap 16.4 (5-19) BUN 15 (8-23) mg/dL Creatinine 0.8 (0.7-1.2) mg/dL Glucose 365 H (74-106) mg/dL Calcium 9.5 (8.5-10.5) mg/dL Total Bilirubin 0.3 (0.15-1.2) mg/dL AST 11 (0-40) U/L ALT 10 (0-41) U/L Alkaline Phosphata se 69 (40-130) IU/L NT-Pro-B Natriuret Pep 1187 H (0-125) pg/mL Total Protein 7.1 (6.6-8.7) g/dL Albumin 3.2 L (3.5-5.2) g/dL Globulin 3.9 (1.3-4.6) g/dL Discharge Plan Discharge Patient Disposition: Admitted As Inpatient Admit Provider: Yanci London Discharge Date/Time: 04/30/19 21:22 Coding Level of Care Code ED Director Property for [facility] The documentation recorded by the Greg dubose Bridget Annette, accurately reflects the service I personally performed and the decisions made by [place] junior Jeremy John, DO Apr 30, 2019 17:30
[2019-04-30 18:28] LABS: INR 1.03 (0.8-1.2)
[2019-04-30] MEDS: ipratropium-albuterol 3 mL Neb INHALATION ×2 (18:40→22:23)
[2019-04-30 18:47] LABS: Alanine Aminotransferase 10 U/L (0-41); Albumin Level 3.2 g/dL (3.5-5.2); Alkaline Phosphatase 69 IU/L (40-130); Anion Gap 16.4 (5-19); Aspartate Amino Transferase 11 U/L (0-40); Blood Urea Nitrogen 15 mg/dL (8-23); Calcium 9.5 mg/dL (8.5-10.5); Carbon Dioxide 27 mmol/L (22-29); Chloride 99 mmol/L (98-107); Globulin 3.9 g/dL (1.3-4.6); Glucose 365 mg/dL (74-106); NT Pro B Type Natriuretic Pept 1187 pg/mL (0-125); Potassium 4.4 mmol/L (3.5-5.1); Sodium 138 mmol/L (136-145); Total Bilirubin 0.3 mg/dL (0.15-1.2); Total Protein 7.1 g/dL (6.6-8.7)
--- NOTE | 2019-04-30 19:57 | P.HP_ITS ---
Providers/Chief Complaint Primary Care Provider: Juhi Pro Chief Complaint: SOB History of Present Illness Yogesh Vazquez is a 74 year old male who carries diagnosis of 30-ctsu-hvky smoking history, recurrent pneumonia,, hemoptysis, COPD, coronary artery disease, CHF, non-small cell squamous cell lung cancer, currently status post chemoradiation with weekly cisplatin was recently discharged from the hospital on 5-day course of steroid and antibiotic Levaquin came back to the hospital with chief complaint of shortness of breath. Patient elected to have chemotherapy, first cycle of chemotherapy started on 04/04/[address] Mcarthur offered hospice with a trial of carboplatin/gemcitabine, no evidence of distant metastases, cavitary right upper lobe lesion. On his previous admission he was treated with vancomycin, Levaquin and Zosyn for possibility of postobstructive pneumonia. Patient is stating that he went home and he was not able to do anything on his own, he was feeling very weak, his shortness of breath was getting worse, he started wheezing a lot, he felt like his has chest congestion but not able to bring any sputum. He did not notice any fever, chest pain, dysuria, diarrhea. Patient is stating that his urine stream is weak and he struggles to initiate voiding. Diagnostics in ER showed sinus tachycardia, hypoxia on 2 L, blood pressure 93/70, congestive heart failure exacerbation, chest x-ray finding a pretty much same as last time with little improvement other than cephalization and mild from edema He was wheezing and was hypoxic, when I saw him he was on 4 L nasal cannula saturating well, however he was using his respiratory accessory muscles, he got 1 dose of methylprednisone 125 mg in ER, I called his son to update him about the respiratory status and risk for intubation, patient expresses his wishes that he wants to stay DNR and DNI and does not want any aggressive measures, son was updated about this as well I ordered CTA chest to rule out pulmonary embolism because he is high risk becau se of his underlying cancer, patient is agreeable to start anticoagulation if needed Review of Systems Const: Reports: chills, body aches, fatigue and malaise; Denies: fever Eyes: Denies: change in vision ENMT: Denies: throat pain Card: Reports: edema; Denies: chest pain Resp: Reports: shortness of breath and non-productive cough GI: Denies: abdominal pain, nausea or vomiting : Denies: flank pain or difficulty urinating Musc: Denies: neck pain or back pain Skin/Breast: Denies: rash Neuro: Denies: headache Psych: Reports: anxiety Endo: Denies: excessive urination Dariel/Lymph: Denies: easy bruising All/Imm: Denies: hives Medications/Allergies Allergies Allergy/AdvReac Type Severity Reaction Status Date / Time No Known Allergies Allergy Verified 04/25/19 11:16 PFSH Acute PFSH: Statuses (acute, chronic, etc) shown below reflect problem list status as previously entered and may not be historically accurate Medical History (Updated 04/30/19 @ 20:38 by Yanci Lnodon MD) CAD (coronary artery disease) (Acute) CHF (congestive heart failure) (Acute) COPD (chronic obstructive pulmonary disease) (Acute) HLD (hyperlipidemia) (Acute) HTN (hypertension) (Acute) Myocardial infarction (Acute ~1996) NSCLC of right lung (Acute) Restrictive lung disease (Acute) Surgical History (Updated 04/30/19 @ 20:06 by Yanci London MD) Hx of hernia repair (Acute) 2009 Stented coronary artery (Acute) 1996 Family History Father CHF (congestive heart failure) Sister Cancer Mother Heart disease Social History Smoking and tobacco status: former smoker Quit status (tobacco): has quit using tobacco Year quit tobacco: 1 month ago Alcohol intake: never Lives independently: Yes Household members: other Details: Son lives next door Marital status: / Current occupational status: retired Vitals/I&O/Wt Last Vital Signs Temp 97.6 F 04/30/19 17:38 Pulse 108 H 04/30/19 18:47 Resp 24 H 04/30/19 18:47 BP 99/80 04/30/19 18:00 Pulse Ox 97 04/30/19 18:47 Weight last 48 hrs Weight 69.4 kg Physical Exam Narrative: EXAM NARRATIVE: This is a frail cachectic appearing elderly male Currently using his respiratory sensory muscles with rib retractions, saturating well on 4 L nasal cannula, He has by basilar crackles with inspiratory and expiratory wheezing with diminished airflow Cachectic appearance, His legs are swollen 1+ pitting edema however not able to assess JVD, sinus tachycardia heart rate 113 Abdomen soft nontender nondistended Neurologically nonfocal exam he appears very anxious because of his restaurant distress Patient has good insight to his disease, Lower extremity 1+ pitting edema No sign of ischemic any ulcer on skin exam Anxious mood Data : 04/30/19 17:55 04/30/19 17:55 A&P Assessment and plan (1) CHF exacerbation: Status: Acute Code(s): I50.9 - Heart failure, unspecified (2) COPD (chronic obstructive pulmonary disease): Status: Acute Code(s): J44.9 - Chronic obstructive pulmonary disease, unspecified (3) Squamous cell lung cancer: Status: Acute Code(s): C34.90 - Malignant neoplasm of unspecified part of unspecified bronchus or lung Additional A&P Information Acute exacerbation of present ejection fraction heart failure Cardiac study from 2010 shows his ejection fraction to be around 45% Current BNP 1187 Because of his soft blood pressure I would only use Lasix 20 mg Echo in the morning Acute on chronic hypoxic respiratory failure Patient was recently discharged on oxygen at home, he was hypoxic on 2 L which has been titrated up to 4 L Currently sinus tachycardic I will get CTA chest rule out PE I would not get d-dimer because of his underlying cancer Acute on chronic COPD exacerbation He was discharged on steroids and Levaquin, X-rays not showing any new changes however seems little better from the previous chest imaging, however chronic changes are malignant and patient respiratory distress is present with use of accessory muscles, his ABG showed respiratory alkalosis I would try DuoNeb, prednisone 40 mg, BiPAP for now and continue Levaquin for now, no active signs of sepsis Patient does not want any intubation in case of restaurant distress Non-small cell lung cancer, squamous cell cancer, getting chemotherapy by Dr. Mcarthur Considering his worsening functional status he might benefit from palliative consult No hypercalcemia noted No neutropenia He was recently treated for postobstructive pneumonia with broad-spectrum antibiotics, cultures were negative to growth, urine antigens negative Goals of care: DNR/DNI, son has been updated DVT prophylaxis: Cardiac diet Attestations Medical Necessity Statement*: Anticipating his stay to cross more than 2 midnights because of worsening functional status, acute exacerbation of CHF with underlying COPD and cancer. Time Spent in Patient Care: (>than 50% of time spent in counselling and/or direct pt care on unit) . 50 Coding Level of Care Code Acute Manager Emergency Department for [facility] Diagnoses CHF exacerbation I50.9 COPD (chronic obstructive pulmonary disease) J44.9 Squamous cell lung cancer C34.90
--- NOTE | 2019-04-30 20:26 | CTR_ITS ---
PROCEDURE INFORMATION: Exam: CT Angiography Chest With Contrast Exam date and time: 04/30/2019 9:04 PM Age: 74 years old Clinical indication: Dyspnea; Prior surgery; Surgery date: 6+ months; Surgery type: Stents; Additional info: Hypoxia and tachycardia TECHNIQUE: Imaging protocol: Computed tomographic angiography of the chest with intravenous contrast. 3D rendering: MIP and/or 3D reconstructed images were created by the technologist. Total DLP: 673.05 mGy-cm Radiation optimization: All CT scans at this facility use at least one of these dose optimization techniques: automated exposure control; mA and/or kV adjustment per patient size (includes targeted exams where dose is matched to clinical indication); or iterative reconstruction. Contrast material: OMNI 350; Contrast volume: 95 ml; Contrast route: IV; COMPARISON: CT angio chest PE protcl [id number] 04/25/2019 4:05 PM FINDINGS: Pulmonary arteries: The right hilar mass narrows the right pulmonary artery and obstructs multiple pulmonary arteries branches in the right upper lobe. No filling defects identified within the pulmonary arteries. Aorta: Unremarkable. No aortic aneurysm. No aortic dissection. Lungs: Mild atelectasis in the left lower lobe. There is severe narrowing of the right mainstem bronchus and bronchus intermedius by the hilar mass. Pleural space: Unremarkable. No pneumothorax. No pleural effusion. Heart: Unremarkable. No cardiomegaly. No pericardial effusion. Mediastinum: Redemonstrated is a large soft tissue mass in the right hilum and right upper lobe. Stable cavitation within the central mass. Stable reticulonodular opacities throughout the right upper, middle, and lower lobes.. Pancreas: Atrophic pancreas. Kidneys and ureters: Left renal cyst. Lymph nodes: Unremarkable. No enlarged lymph nodes. Bones/joints: Unremarkable. No acute fracture. Soft tissues: Unremarkable. CT/CT angio chest PE protcl [id number] IMPRESSION: 1. No evidence for pulmonary embolus. 2. Stable right hilar and right upper lobe mass with cavitation, consistent with malignancy. This narrows the main right pulmonary artery and obstructs multiple right upper lobe pulmonary artery branches. 3. Diffuse reticulonodular opacities in the right lung could represent lymphangitis spread of malignancy and/or postobstructive pneumonitis with endobronchial infection. Radiation Dose CTDIVOL = (mGy): DLP = 673.05 (mGy-cm)
[2019-04-30] MEDS: iohexol 350 mg/mL 100 mL Btl IV (21:21)
[2019-04-30 21:55] LABS: Glucose Point of Care 287 mg/dL (70-110)
[2019-04-30] MEDS: enoxaparin 40 mg/0.4 mL Syringe SUBCUT (22:41)
[2019-05-01] VITALS (18 sets, daily range): BP systolic 100–112; BP diastolic 68–74; PULSE 76–113; RESP 18–22; TEMP 36.4–36.9; O2SAT 91–99
[2019-05-01] MEDS: ipratropium-albuterol 3 mL Neb INHALATION ×6 (03:02→23:11)
[2019-05-01 06:18] LABS: Basophils % 0.2 %; Hematocrit 30.8 % (42.0-52.0); Hemoglobin 9.5 g/dL (11.7-16.6); Lymphocytes # 0.4 10^3/uL (0.8-4.8); Lymphocytes % 8.4 %; Mean Corpuscular HGB Conc 30.8 g/dL (30.0-36.0); Mean Corpuscular Volume 81.1 fL (80-94); Mean Platelet Volume 10.3 fL (7.4-10.4); Monocytes # 0.3 10^3/uL (0.2-0.9); Monocytes % 5.4 %; Neutrophils # 3.7 10^3/uL (1.8-7.7); Neutrophils % 80.4 %; Nucleated Red Blood Cells % 0 %; Platelet Count 519 10^3/cmm (130-400); Red Cell Distribution Width 18.4 % (12.1-15.1); White Blood Count 4.6 10^3/uL (4.0-10.0)
[2019-05-01 06:41] LABS: Alanine Aminotransferase 9 U/L (0-41); Albumin Level 2.6 g/dL (3.5-5.2); Alkaline Phosphatase 56 IU/L (40-130); Anion Gap 15.9 (5-19); Aspartate Amino Transferase 9 U/L (0-40); Blood Urea Nitrogen 15 mg/dL (8-23); Carbon Dioxide 24 mmol/L (22-29); Chloride 99 mmol/L (98-107); Globulin 3.4 g/dL (1.3-4.6); Glucose 361 mg/dL (74-106); Potassium 4.9 mmol/L (3.5-5.1); Sodium 134 mmol/L (136-145); Total Bilirubin 0.3 mg/dL (0.15-1.2)
[2019-05-01 07:04] LABS: Slide Review Slide Review Perform
[2019-05-01] MEDS: levoFLOXacin 750 mg Tablet PO (09:13)
[2019-05-01] MEDS: predniSONE 20 mg Tablet 40 MG PO (09:13)
[2019-05-01] MEDS: FUROsemide 20 mg Tablet PO (09:14)
[2019-05-01] MEDS: aspirin 81 mg Chew Tablet PO (09:14)
[2019-05-01 11:07] LABS: Glucose Point of Care 430 mg/dL (70-110)
--- NOTE | 2019-05-01 14:06 | PC.CHAP ---
Pastoral Care Encounter/Spiritual Assessment Type of Contact [x] Declined collections manager visit [] Patient/Family/Request visit [] Outpatient visit [] Follow-up visit [] Physician referral [] Code/Alert [] Routine visit [] Staff referral [] Actively dying [] Patient sleeping [] Family support [] [] Out of room [] Palliative care [] [] Receiving care in room [] Pre-surgical visit [] Trauma [] Long length of stay [] ICU visit [] Other: Relational/Emotional Strength [] Patient feels connected with others/family/visitors/staff [] Distress [] Loneliness/isolation [] Abandonment Spirituality of Patient [] Person of Zuleyma [] Attends Confucianism of their Zuleyma [] Believes in Prayer [] Reads Bible or Islam materials [] There are Spiritual issues to be addressed Safety Physician Interventions [] Prayer [] Active listening [] Non-anxious presence [] Spiritual/emotional support [] Crisis/trauma care [] Spiritual counseling [] Bereavement support [] Provided bereavement packet [] Provided Bible/devotional materials [] Provided toy/stuffed animal, coloring book to patient or family member [] Provided Communion [] Anointing/[place] [] Salvation [] Completed spiritual assessment [] Other: Impact on Illness or Injury [] Angry [] Fearful [] Anxious [] Often cries [] Exhaustion [] Unable to work [] Unable to attend episcopalian [] Unable to walk/stand [] Unable to read [] Unable to drive [] Unable to eat/drink [] Unable to sleep [] Unable to be with family [] Patient intubated [] Other: Summary pt. did not want Pastoral visits Time spent with patient 5 min.
[2019-05-01 16:54] LABS: Glucose Point of Care 405 mg/dL (70-110)
--- NOTE | 2019-05-01 18:02 | PM.PN ---
Subjective Subjective: Interval history: Reviewed history and physical. Yogesh reports that he just had worsening breathing problems at home. He realizes that he just does not think he can live at home anymore. He is wondering if he is a candidate for any kind of nursing facility placement. He is not for sure if he wants to undergo any treatment for his lung malignancy. He reports no fever at home. He is still coughing. He still wheezes quite a bit. Medications: Reviewed: Yes Vitals/I&O/Wt Last Vital Signs Temp 97.5 F L 05/01/19 15:25 Pulse 113 H 05/01/19 15:41 Resp 22 H 05/01/19 15:41 BP 108/68 05/01/19 15:25 Pulse Ox 95 05/01/19 15:41 05/01/19 05/01/19 05/01/19 06:59 14:59 22:59 Intake Total 100 / 100 200 / 200 Output Total 350 / 350 200 / 200 Balance -250 / -250 0 / 0 Weight last 48 hrs Weight 69.4 kg Physical Exam Narrative: EXAM NARRATIVE: General exam is mild respiratory distress Cardiovascular regular rate and rhythm, although slightly tachycardic Lungs a few faint bilateral expiratory wheezes Abdomen is soft, positive bowel sounds Extremities no cyanosis clubbing. Trace edema is present Data : 05/01/19 05:31 05/01/19 05:31 A&P Assessment and plan (1) CHF exacerbation: Continue Lasix daily at 20 mg. Acute systolic. Status: Acute Code(s): I50.9 - Heart failure, unspecified (2) COPD (chronic obstructive pulmonary disease): Continue prednisone. Continue nebulized treatment every 4 hours Add Advair Continue Levaquin. Status: Acute Code(s): J44.9 - Chronic obstructive pulmonary disease, unspecified (3) Squamous cell lung cancer: Patient contemplating if he would want any more treatment. Status: Acute Code(s): C34.90 - Malignant neoplasm of unspecified part of unspecified bronchus or lung Additional A&P Information Global weakness. Needs rehabilitation. Acute on chronic hypoxic respiratory failure. CTA negative for pulmonary embolism. Elevated glucose. Add sliding scale insulin. Check A1c. DNR, DNI Lovenox for DVT prophylaxis Attestations Medical Necessity Statement*: Needs continued hospitalization for COPD exacerbation treatment with prednisone, pulmonary toilet. Will likely need placement. Coding Level of Care Code Acute Television News Anchor for Chg [employer] Diagnoses CHF exacerbation I50.9 COPD (chronic obstructive pulmonary disease) J44.9 Squamous cell lung cancer C34.90
[2019-05-01 18:23] LABS: Add On to Lab Order(s) Added
[2019-05-01 19:11] LABS: Estmated Average Glucose 295; Hemoglobin A1C 11.9 % (4.0-6.0)
[2019-05-01 21:34] LABS: Glucose Point of Care 355 mg/dL (70-110)
[2019-05-01] MEDS: enoxaparin 40 mg/0.4 mL Syringe SUBCUT (21:36)
[2019-05-02] VITALS (17 sets, daily range): BP systolic 103–111; BP diastolic 66–79; PULSE 84–115; RESP 16–22; TEMP 36.1–37.1; O2SAT 91–99
[2019-05-02] MEDS: ipratropium-albuterol 3 mL Neb INHALATION ×5 (03:12→23:27)
[2019-05-02 05:09] LABS: Basophils % 0.1 %; Hematocrit 34.9 % (42.0-52.0); Hemoglobin 10.8 g/dL (11.7-16.6); Lymphocytes # 0.7 10^3/uL (0.8-4.8); Lymphocytes % 7.2 %; Mean Corpuscular HGB Conc 30.9 g/dL (30.0-36.0); Mean Corpuscular Hemoglobin 25.5 pg (28.0-34.0); Mean Corpuscular Volume 82.5 fL (80-94); Mean Platelet Volume 10.1 fL (7.4-10.4); Monocytes # 1.6 10^3/uL (0.2-0.9); Monocytes % 15.5 %; Neutrophils # 7.3 10^3/uL (1.8-7.7); Neutrophils % 71.3 %; Nucleated Red Blood Cells % 0 %; Platelet Count 658 10^3/cmm (130-400); Red Blood Count 4.23 10^6/uL (4.1-5.3); Red Cell Distribution Width 18.8 % (12.1-15.1); White Blood Count 10.2 10^3/uL (4.0-10.0)
[2019-05-02 05:23] LABS: Anion Gap 13.2 (5-19); Blood Urea Nitrogen 18 mg/dL (8-23); Calcium 9.8 mg/dL (8.5-10.5); Carbon Dioxide 27 mmol/L (22-29); Chloride 100 mmol/L (98-107); Glucose 177 mg/dL (74-106); Osmolality Calculated 283 mOsm/kg (285-295); Potassium 4.2 mmol/L (3.5-5.1); Sodium 136 mmol/L (136-145)
[2019-05-02 06:04] LABS: Absolute Segmented Neutrophil 8.3 10/cmm (1.6-7.1); Band Neutrophils Absolute 0.9 10^3/cmm (0.0-1.2); Segmented Neutrophils 82 %; Slide Review Slide Review Perform
[2019-05-02 06:05] LABS: Lymphocytes 4 %; Monocytes Absolute 0.1 10^3/cmm (0.1-0.6); Platelet Estimate Increased (Normal); Total Cells Counted 100 (0-100)
[2019-05-02 06:39] LABS: Glucose Point of Care 200 mg/dL (70-110)
[2019-05-02] MEDS: predniSONE 20 mg Tablet 40 MG PO (08:26)
[2019-05-02] MEDS: aspirin 81 mg Chew Tablet PO (08:26)
[2019-05-02] MEDS: FUROsemide 20 mg Tablet PO (08:26)
[2019-05-02] MEDS: levoFLOXacin 750 mg Tablet PO (08:26)
[2019-05-02 11:27] LABS: Glucose Point of Care 303 mg/dL (70-110)
[2019-05-02] MEDS: doxycycline 100 mg Tablet PO ×2 (11:58→18:18)
--- NOTE | 2019-05-02 13:32 | P.PN_ITS ---
Subjective Subjective: Interval history: Yogesh reports his breathing is about the same. He gets very winded with any activity. He is coughing up some yellowish sputum. Medications: Reviewed: Yes Vitals/I&O/Wt Last Vital Signs Temp 97.2 F L 05/02/19 10:40 Pulse 99 05/02/19 10:40 Resp 16 05/02/19 10:40 BP 108/71 05/02/19 10:40 Pulse Ox 95 05/02/19 10:40 05/01/19 05/02/19 05/02/19 22:59 06:59 14:59 Intake Total 480 / 680 240 / 920 240 / 240 Output Total 1000 / 1200 Balance 480 / 480 -760 / -280 240 / 240 Weight last 48 hrs Weight 69.4 kg Physical Exam Narrative: EXAM NARRATIVE: General exam is mild respiratory distress Cardiovascular regular rate and rhythm Lungs bilateral expiratory wheezes are noted Abdomen is soft, positive bowel sounds Extremities no cyanosis clubbing. Trace edema is present Data : 05/02/19 04:40 05/02/19 04:40 A&P Assessment and plan (1) CHF exacerbation: Increase Lasix to 40 mg daily. An extra 20 mg IV now Status: Acute Code(s): I50.9 - Heart failure, unspecified (2) COPD (chronic obstructive pulmonary disease): Continue prednisone. Continue nebulized treatment every 4 hours Add Advair Continue Levaquin. Add doxycycline Status: Acute Code(s): J44.9 - Chronic obstructive pulmonary disease, unspecified (3) Squamous cell lung cancer: Patient contemplating if he would want any more treatment. Status: Acute Code(s): C34.90 - Malignant neoplasm of unspecified part of unspecified bronchus or lung Additional A&P Information Global weakness. Needs rehabilitation. Discharge planning evaluating Acute on chronic hypoxic respiratory failure. CTA negative for pulmonary embolism. Elevated glucose. Add sliding scale insulin. Check A1c. DNR, DNI Lovenox for DVT prophylaxis Attestations Medical Necessity Statement*: Needs continued hospital stay for pulmonary toilet, secondary to COPD exacerbation pending placement. Coding Level of Care Code Acute Childcare Center Administrator for [facility]g [facility] Diagnoses CHF exacerbation I50.9 COPD (chronic obstructive pulmonary disease) J44.9 Squamous cell lung cancer C34.90
[2019-05-02] MEDS: FUROsemide 10 mg/mL SDV 2mL 20 MG IVP (15:49)
[2019-05-02 17:03] LABS: Glucose Point of Care 280 mg/dL (70-110)
[2019-05-02] MEDS: guaiFENesin 600 mg Tablet PO (18:19)
[2019-05-02 21:15] LABS: Glucose Point of Care 312 mg/dL (70-110)
[2019-05-02] MEDS: enoxaparin 40 mg/0.4 mL Syringe SUBCUT (21:25)
[2019-05-03] VITALS (9 sets, daily range): BP systolic 95–118; BP diastolic 63–71; PULSE 88–114; RESP 17–20; TEMP 36.3–36.4; O2SAT 92–98
[2019-05-03] MEDS: ipratropium-albuterol 3 mL Neb INHALATION ×3 (03:25→11:27)
[2019-05-03 05:39] LABS: Anion Gap 14.7 (5-19); Blood Urea Nitrogen 15 mg/dL (8-23); Calcium 9.5 mg/dL (8.5-10.5); Carbon Dioxide 28 mmol/L (22-29); Chloride 100 mmol/L (98-107); Glucose 119 mg/dL (74-106); Osmolality Calculated 285 mOsm/kg (285-295); Potassium 3.7 mmol/L (3.5-5.1); Sodium 139 mmol/L (136-145)
[2019-05-03 06:34] LABS: Glucose Point of Care 120 mg/dL (70-110)
[2019-05-03] MEDS: aspirin 81 mg EC Tablet PO (08:48)
[2019-05-03] MEDS: predniSONE 20 mg Tablet 40 MG PO (08:48)
[2019-05-03] MEDS: levoFLOXacin 750 mg Tablet PO (08:48)
[2019-05-03] MEDS: guaiFENesin 600 mg Tablet PO (08:49)
[2019-05-03] MEDS: FUROsemide 40 mg Tablet PO (08:49)
[2019-05-03] MEDS: doxycycline 100 mg Tablet PO (08:49)
--- NOTE | 2019-05-03 10:02 | PC.SOCIAL ---
Pg 2 of IMM Pg 2 of IMM was explained to and signed by the patient, copy was provided, and form placed in chart. He verbalized understanding and had no questions.
[2019-05-03 11:16] LABS: Glucose Point of Care 376 mg/dL (70-110)
--- NOTE | 2019-05-03 11:38 | PM.DCS ---
Discharge Providers Date of Admission: 04/30/19 19:53 Date of Discharge: Date of Discharge: May 03, 2019 Attending Provider at Admission: Yanci London MD Attending Provider at Discharge: Zeyad Goins MD Primary Care Provider: Juhi Pro Diagnoses at Discharge Discharge Diagnosis (1) CHF exacerbation: Status: Acute Problem details: Placed on Lasix. Diuresis has occurred (2) COPD (chronic obstructive pulmonary disease): Status: Acute Problem details: Stable. On 3.5 L of oxygen. He reports his breathing is about at baseline. Will make transition to skilled care today. (3) Squamous cell lung cancer: Status: Acute Problem details: Overall prognosis poor. If he does not gain strength he may need to be changed to comfort measures. Patient is aware of this. Reason for Visit Reason for Visit: Reason For Visit: SOB Hospital Course Hospital Course: Yogesh is a 74-year-old white male who presents to the hospital with shortness of breath. He had had a recent hospitalization for COPD exacerbation as well as postobstructive pneumonia. There was concern on admission he may have a component of acute diastolic heart failure. He was diuresed. Oral Levaquin, prednisone, pulmonary toilet were continued. He improved minimally over the next several days. Certainly he was stable as far as his oxygenation. He wished to transition to skilled care to see if he could become stronger. He realizes that his overall prognosis for his lung cancer is poor, and that if he does not gain strength or is able to go home he may need to transition to comfort measures. Physical Exam Narrative: EXAM NARRATIVE: General exam no apparent distress Cardiovascular regular rate and rhythm Lungs bilateral expiratory wheezes with diminished breath sounds right lung Abdomen is soft, positive bowel sounds Extremities trace edema Discharge Data Data Completed and Pending: Completed Studies During Hospitalization Category Date Time Status CT angio chest PE protcl [id number] Stat Cat Scan 04/30/19 20:26 Completed XR chest 1V [place] ble [id number] Urgent Exams 04/30/19 17:41 Completed Labs from last 24 hours 05/03/19 05/03/19 05/03/19 11:12 06:30 04:20 Sodium 139 Potassium 3.7 Chloride 100 Carbon Dioxide 28 Anion Gap 14.7 BUN 15 Creatinine 0.7 Glucose 119 H POC Glucose 376 120 Calculated Osmolal ity 285 Calcium 9.5 05/02/19 05/02/19 21:06 16:55 Sodium Potassium Chloride Carbon Dioxide Anion Gap BUN Creatinine Glucose POC Glucose 312 280 Calculated Osmolal ity Calcium Vitals: Last Vital Signs Temp 97.3 F L 05/03/19 11:19 Pulse 98 05/03/19 11:35 Resp 18 05/03/19 11:29 BP 118/71 05/03/19 11:19 Pulse Ox 94 05/03/19 11:29 Discharge Plan Discharge Patient Disposition: Xfer SNF Condition: Stable Prescriptions: New ipratropium-albuterol 0.5 mg-3 mg(2.5 mg base)/3 mL Solution For Nebulization 3 ml inhalation Q4H.RESPIRATORY Qty: 180 RF: 0 levofloxacin 750 mg Tablet 750 mg PO DAILY Qty: 7 RF: 0 insulin aspart U-100 [Novolog U-100 Insulin aspart] 100 unit/mL Solution 0 unit SUBCUT WM&BEDTIME Qty: 10 RF: 0 prednisone 20 mg Tablet 40 mg PO DAILY Qty: 10 RF: 0 fluticasone propion-salmeterol [Advair Diskus] 250-50 mcg/dose Blister With Device 1 puff inhalation BID.RESPIRATORY Qty: 1 RF: 0 doxycycline monohydrate 100 mg Tablet 100 mg PO BID Qty: 14 RF: 0 guaifenesin [Mucinex] 600 mg Tablet Extended Release 12hr 600 mg PO BID Qty: 60 RF: 0 furosemide 40 mg Tablet 40 mg PO DAILY@0800 Qty: 30 RF: 0 Continued prochlorperazine maleate 10 mg tablet 10 mg PO Q4H PRN (Reason: Nausea) RF: 0 aspirin 81 mg Tablet,Chewable 81 mg PO DAILY RF: 0 Discontinued ipratropium-albuterol 0.5 mg-3 mg(2.5 mg base)/3 mL Solution For Nebulization 3 ml inhalation QID.RESPIRATORY Qty: 360 RF: 0 budesonide 0.5 mg/2 mL Suspension For Nebulization 0.5 mg inhalation BID PRN (Reason: Shortness Of Breath) Qty: 120 RF: 0 prednisone 20 mg tablet 40 mg PO DAILY 5 Days Qty: 10 RF: 0 Levaquin 750 mg tablet 750 mg PO DAILY 5 Days Qty: 5 RF: 0 Discharge Orders: Discharge Order (Routine); Ordered 05/03/19 Ordered By: Zeyad Goins Discharge Diet: Regular Discharge Activity: Resume usual activity Activity Restrictions/Additional Instructions: Follow-up with primary care provider at [facility]) 3 to 5 days BMP 3 to 4 days. Oxygen 3.5 L per nasal cannula. Titrate for sat greater than or equal to 92% Prednisone is 40 mg a day for 5 days. Note that patient has been contemplating comfort care as well, should he worsen. Discharge Attestations Time Spent in Discharge Care*: greater than 30 min Quality Metrics Clinical Quality Measures During this hospital stay, did patient experience: None Coding Level of Care Code Acute Talent Manager for Qing [employer] Diagnoses CHF exacerbation I50.9 COPD (chronic obstructive pulmonary disease) J44.9 Squamous cell lung cancer C34.90
--- NOTE | 2019-05-03 14:20 | PC.NURSE ---
DISCHARGE SUMMARY PATIENT WAS TAKEN TO [facility] BY MEDICAL TRANSPORT. PACKET WAS GIVEN TO TRANSPORT. VITAL SIGNS STABLE. LEFT THE FLOOR ON 5 LITERS NC. REPORT WAS GIVEN TO RECEIVING NURSE. FAMILY ACCOMPANIED TRANSPORT.
== END 2019-05-03 14:25 | disposition skilled nursing facility (03) | DRG 291 ==
LOC: ER 17:48 → MEDSURG 20:13
PROVIDERS: Emergency Medicine; Admitting Provider Internal Medicine; Emergency Provider Emergency Medicine; PCP Nurse Practitioner Family; Visit Provider Internal Medicine
DX: I11.0 Hypertensive heart disease with heart failure (principal); I50.31 Acute diastolic (congestive) heart failure; J96.22 Acute and chronic respiratory failure with hypercapnia; C34.90 Malignant neoplasm of unspecified part of unspecified bronchus or lung; R64 Cachexia; Z99.81 Dependence on supplemental oxygen; J44.9 Chronic obstructive pulmonary disease, unspecified; Z66 Do not resuscitate; I25.10 Atherosclerotic heart disease of native coronary artery without angina pectoris; R00.0 Tachycardia, unspecified; I25.2 Old myocardial infarction; Z87.891 Personal history of nicotine dependence; Z79.899 Other long term (current) drug therapy; Z79.82 Long term (current) use of aspirin; Z79.4 Long term (current) use of insulin; Z79.51 Long term (current) use of inhaled steroids; Z79.52 Long term (current) use of systemic steroids
CPT/HCPCS: 12345; 36416; 36600; 71045; 71275; 80048; 80053; 82805; 82962; 83036; 83880; 85007; 85025; 85610; 93005; 94640; 94660; 94762; 96372; 96374; 96375; 99283; J1650; J1815; J1940; J2930; J7512; Q9967

== ENCOUNTER 2019-05-25 15:25 | Inpatient (IN) | payer MEDICARE, SELFPAY ==
[2019-05-25] VITALS (23 sets, daily range): BP systolic 89–120; BP diastolic 56–75; PULSE 109–140; RESP 24–44; TEMP 36.8; O2SAT 89–95; BMI 18.4
--- NOTE | 2019-05-25 14:35 | XRR_ITS ---
PROCEDURE INFORMATION: Exam: XR Chest, 1 View Exam date and time: 05/25/2019 2:50 PM Age: 74 years old Clinical indication: Shortness of breath; Prior surgery; Surgery date: 6+ months; Surgery type: Stents, date of surgery not provided; Additional info: SOA TECHNIQUE: Imaging protocol: XR of the chest Views: Frontal portable upright view of the chest. COMPARISON: CR XR chest 1V portable [id number] 04/30/2019 6:[address] angio chest PE protcl [id number] 04/30/2019 9:39:07 PM FINDINGS: Tubes, catheters and devices: EKG leads are present overlying the chest. Lungs: Interval increase in airspace opacity in the left mid-lower lung zone. Persistent right mid lung zone pulmonary parenchymal scarring. Known right hilar mass obscured by new airspace opacity. Necrotizing cavity central right upper lobe redemonstrated, relatively stable. The visible LEFT pulmonary vasculature is normal. Pleural space: Interval large pleural effusion. Heart/Mediastinum: Normal cardiac size. Stable mild rightward mediastinal shift. Vasculature: The left subclavian venous portacatheter tip is in the lower SVC. Bones/joints: No destructive bony process identified. XR/XR chest 1V portable [id number] IMPRESSION: 1. Interval increase in airspace opacity in the left mid-lower lung zone. Pneumonitis is difficult to exclude. Clinical correlation is recommended. 2. Interval large pleural effusion. 3. Persistent right mid lung zone pulmonary parenchymal scarring. 4. Known right hilar mass obscured by new airspace opacity. 5. Necrotizing cavity central right upper lobe redemonstrated, relatively stable.
--- NOTE | 2019-05-25 14:35 | ECG_ITS ---
Measurements Intervals Brock Rate: 126 P: 69 NC: 109 QRS: 63 QRSD: 81 T: 83 QT: 293 QTc: 425 SINUS TACHYCARDIA WITH SHORT NC INTERVAL NONSPECIFIC T-WAVE ABNORMALITY Compared to ECG 04/30/2019 17:48:28 Short NC interval now present T-wave abnormality now present Indeterminate axis no longer present Electronically Signed On 05-26-2019 6:30:08 WELDER SHIELDED METAL ARC by Yaz Rock M.D. [email or web address]
--- NOTE | 2019-05-25 14:40 | ED_ITS ---
Entered by Karina Garza, acting as scribe for HPI - SOB/Dyspnea General: Chief Complaint: Shortness of Breath/Dyspnea Stated Complaint: RESP DISTRESS Time Seen by Provider: 05/25/19 14:41 Source: patient History of Present Illness: MD elicited complaint: shortness of breath and cough Pertinent past history: COPD Onset (ago): hour(s) (5:30 am per son) Context: recent illness (pneumonia in R lung) Timing: constant and progressively worsening Severity: moderate Exacerbating factors: exertion, coughing and deep breaths Relieving factors: oxygen Known history of: COPD Associated symptoms: Reports cough Treatment prior to arrival: oxygen and other (recently dx with pneumonia) Review of Systems Musc: Denies: joint warmth PFSH ED PFSH: Medical History (Updated 05/25/19 @ 16:30 by Savannah Fung MD) CAD (coronary artery disease) CHF (congestive heart failure) COPD (chronic obstructive pulmonary disease) Stable. On 3.5 L of oxygen. He reports his breathing is about at baseline. Will make transition to skilled care today. HLD (hyperlipidemia) HTN (hypertension) Myocardial infarction (~1996) NSCLC of right lung Restrictive lung disease Surgical History (Updated 04/30/19 @ 20:06 by Yanci London MD) Hx of hernia repair 2009 Stented coronary artery 1996 Social History Smoking and tobacco status: former smoker Quit status (tobacco): has quit using tobacco Year quit tobacco: 1 month ago Alcohol intake: never Lives independently: Yes Household members: other Details: Son lives next door Marital status: / Current occupational status: retired Physical Exam Resp: AUSCULTATION: rales, rhonchi, wheezes and diminished lung sounds Cardio: RATE: tachycardic (139) Course Vital Signs: Vital signs: Vital Signs Temperature 98.2 F 05/25/19 14:27 Pulse Rate 126 H 05/25/19 16:20 Respiratory Rate 40 H 05/25/19 16:19 Blood Pressure 103/59 05/25/19 14:27 Pulse Oximetry 94 05/25/19 16:20 MDM - SOB/Dyspnea MDM Narrative: Medical decision making narrative: 74-year-old male with history of CHF and COPD with increased shortness of breath over the last couple of days. He came from home by ambulance and was accompanied by his son. He was very tachypneic on initial exam with rhonchi and crackles throughout moderate air movement does not sound tight but had few end expiratory wheezes. Started on BiPAP. Chest x-ray reviewed. CBC must have been hemolyzed since is still not done. Lab contacted since we have no CBC at this point and the patient nee ds to be admitted. I spoke with the hospitalist who accepts the patient on admission. Solu-Medrol 125 mg IV ordered. Lab Data: Attestation: I reviewed the patient's lab results. Labs: Lab Results 05/25/19 05/25/19 05/25/19 Range/Units 14:42 15:10 15:10 WBC 30.9 H* (4.0-10.0) 10^3/ uL RBC 4.78 (4.1-5.3) 10^6/u L Hgb 12.1 (11.7-16.6) g/dL Hct 40.9 L (42.0-52.0) % MCV 85.6 (80-94) fL MCH 25.3 L (28.0-34.0) pg MCHC 29.6 L (30.0-36.0) g/dL RDW 19.3 H (12.1-15.1) % Plt Count 353 (130-400) 10^3/c mm MPV 10.7 H (7.4-10.4) fL Neut % (Auto) 91.4 % Lymph % (Auto) 2.1 % [place] % (Auto) 4.7 % Eos % (Auto) 0.0 % Baso % (Auto) 0.2 % Neut # (Auto) 28.3 H (1.8-7.7) 10^3/u L Lymph # (Auto) 0.6 L (0.8-4.8) 10^3/u L [place] # (Auto) 1.4 H (0.2-0.9) 10^3/u L Eos # (Auto) 0.0 (0.0-0.8) 10^3/u L Baso # (Auto) 0.1 (0.0-0.1) 10^3/u L Nucleated RBC % (a uto) 0 % Nucleated RBCs # 0.0 /100WBC Specimen Type Arterial Sample Site Radial, left ABG pH 7.34 L (7.35-7.45) ABG pCO2 26.2 L (35-45) mmHg ABG pO2 64.4 L (80.0-100.0) mmH g ABG HCO3 14.2 L (22-26) mmol/L ABG Base Excess -10.0 L (-2.0-2.0) mmol/ L Sean Test Pos Hematocrit 37.4 L (42-52) % Hgb O2 Saturation 89.9 L (95-100) % Carboxyhemoglobin 1.4 (0.4-20.1) %THgb Methemoglobin 0.1 L (0.4-1.5) % Total Hemoglobin 12.2 L (14-18) g/dL O2 Delivery Device Nc O2 Liters/Min 6.0 % Credit Cashier ID monro Sodium 133 L (136-145) mmol/L Potassium 4.9 (3.5-5.1) mmol/L Chloride 87 L (98-107) mmol/L Carbon Dioxide 17 L (22-29) mmol/L Anion Gap 33.9 H (5-19) BUN 27 H (8-23) mg/dL Creatinine 1.0 (0.7-1.2) mg/dL Glucose 463 H (65-115) mg/dL Calcium 11.4 H (8.5-10.5) mg/dL Magnesium 2.2 (1.7-2.3) mg/dL Total Bilirubin 0.4 (0.15-1.2) mg/dL AST 7 (0-40) U/L ALT 8 (0-41) U/L Alkaline Phosphata se 101 (40-130) IU/L NT-Pro-B Natriuret Pep 1434 H (0-125) pg/mL Total Protein 6.9 (6.6-8.7) g/dL Albumin 2.3 L (3.5-5.2) g/dL Globulin 4.6 (1.3-4.6) g/dL Imaging Data^: CXR: Radiologist's impression: [address] [place] [address] XRay Report Signed Patient: Yogesh Vazquez #: [id number] : 1945Acct#:[id number] Age/Sex: 74 / MADM Date: 05/25/19 Loc: ERRoom/Bed: Attending Dr: Ordering Provider/Ordering MD: Savannah Fung MD Date of Service: 05/25/19 Procedure(s): XR chest 1V portable [id number] Accession Number(s): [id number] Report Number: [id number] PROCEDURE INFORMATION: Exam: XR Chest, 1 View Exam date and time: 05/25/2019 2:50 PM Age: 74 years old Clinical indication: Shortness of breath; Prior surgery; Surgery date: 6+ months; Surgery type: Stents, date of surgery not provided; Additional info: SOA TECHNIQUE: Imaging protocol: XR of the chest Views: Frontal portable upright view of the chest. COMPARISON: CR XR chest 1V portable [id number] 04/30/2019 6:[address] angio chest PE protcl [id number] 04/30/2019 9:39:07 PM FINDINGS: Tubes, catheters and devices: EKG leads are present overlying the chest. Lungs: Interval increase in airspace opacity in the left mid-lower lung zone. Persistent right mid lung zone pulmonary parenchymal scarring. Known right hilar mass obscured by new airspace opacity. Necrotizing cavity central right upper lobe redemonstrated, relatively stable. The visible LEFT pulmonary vasculature is normal. Pleural space: Interval large pleural effusion. Heart/Mediastinum: Normal cardiac size. Stable mild rightward mediastinal shift. Vasculature: The left subclavian venous portacatheter tip is in the lower SVC. Bones/joints: No destructive bony process identified. XR/XR chest 1V portable [id number] IMPRESSION: 1. Interval increase in airspace opacity in the left mid-lower lung zone. Pneumonitis is difficult to exclude. Clinical correlation is recommended. 2. Interval large pleural effusion. 3. Persistent right mid lung zone pulmonary parenchymal scarring. 4. Known right hilar mass obscured by new airspace opacity. 5. Necrotizing cavity central right upper lobe redemonstrated, relatively stable. Dictated By:Param Iglesias MD Signed By:Param Iglesiasigned Date/Time:05/25/19 1535 DD/ 1534 Critical Care Time Critical Care Time: Critical Care Time: Yes Total Critical Care Time: 30 Attestation: This case had a high probability of a clinically significant, sudden, or life threatening deterioration of this patient's condition which required my full and direct attention, intervention and personal management. Discharge Plan Discharge Patient Disposition: Admitted As Inpatient Clinical Impression: Respiratory failure Qualifiers: Chronicity: acute on chronic Respiratory failure complication: hypoxia Qualified Code(s): J96.21 - Acute and chronic respiratory failure with hypoxia Condition: Stable Referrals: [facility] [Other] [facility] [Primary Care Provider] - Coding Level of Care Code ED Vice President Underwriting for Chg Fwd Exam Expanded Problem Focused The documentation recorded by the Greg dubose Bridget Annette, accurately reflects the service I personally performed and the decisions made by me, Savannah Garza MD May 25, 2019 15:25
[2019-05-25 14:55] LABS: ABG PCO2 26.2 mmHg (35-45); ABG PH Result 7.34 (7.35-7.45); Arterial Blood Gas Hematocrit 37.4 % (42-52); Blood Gas Allen Test Pos; Blood Gas Sample Site Radial, left; Blood Gas Sample Type Arterial; Carboxyhemoglobin 1.4 %THgb (0.4-20.1); HCO3 ABG 14.2 mmol/L (22-26); HGB O2 Sat 89.9 % (95-100); Methemoglobin 0.1 % (0.4-1.5); Oxygen Device NC; PO2 ABG 64.4 mmHg (80.0-100.0); Total Hemoglobin 12.2 g/dL (14-18)
[2019-05-25] MEDS: LORazepam 2 mg/mL INJ 1 mL 0.5 MG IVP ×3 (14:59→21:49)
[2019-05-25 15:58] LABS: Alanine Aminotransferase 8 U/L (0-41); Albumin Level 2.3 g/dL (3.5-5.2); Alkaline Phosphatase 101 IU/L (40-130); Anion Gap 33.9 (5-19); Aspartate Amino Transferase 7 U/L (0-40); Blood Urea Nitrogen 27 mg/dL (8-23); Calcium 11.4 mg/dL (8.5-10.5); Carbon Dioxide 17 mmol/L (22-29); Chloride 87 mmol/L (98-107); Globulin 4.6 g/dL (1.3-4.6); Glucose 463 mg/dL (65-115); Magnesium 2.2 mg/dL (1.7-2.3); NT Pro B Type Natriuretic Pept 1434 pg/mL (0-125); Potassium 4.9 mmol/L (3.5-5.1); Sodium 133 mmol/L (136-145); Total Bilirubin 0.4 mg/dL (0.15-1.2); Total Protein 6.9 g/dL (6.6-8.7)
[2019-05-25] MEDS: ipratropium-albuterol 3 mL Neb INHALATION ×2 (16:17→23:46)
[2019-05-25 16:27] LABS: Basophils # 0.1 10^3/uL (0.0-0.1); Basophils % 0.2 %; Hematocrit 40.9 % (42.0-52.0); Hemoglobin 12.1 g/dL (11.7-16.6); Lymphocytes # 0.6 10^3/uL (0.8-4.8); Lymphocytes % 2.1 %; Mean Corpuscular HGB Conc 29.6 g/dL (30.0-36.0); Mean Corpuscular Hemoglobin 25.3 pg (28.0-34.0); Mean Corpuscular Volume 85.6 fL (80-94); Mean Platelet Volume 10.7 fL (7.4-10.4); Monocytes # 1.4 10^3/uL (0.2-0.9); Monocytes % 4.7 %; Neutrophils # 28.3 10^3/uL (1.8-7.7); Neutrophils % 91.4 %; Nucleated Red Blood Cells % 0 %; Platelet Count 353 10^3/cmm (130-400); Red Blood Count 4.78 10^6/uL (4.1-5.3); Red Cell Distribution Width 19.3 % (12.1-15.1)
[2019-05-25 16:41] LABS: White Blood Count 30.9 10^3/uL (4.0-10.0)
--- NOTE | 2019-05-25 16:49 | PC.NURSE ---
WBC's 30.9
--- NOTE | 2019-05-25 17:53 | P.HP_ITS ---
Providers/Chief Complaint Admitting Physician: Mary Jane Polk MD Primary Care Provider: [facility] Chief Complaint: Increased SOB History of Present Illness Yogesh Vazquez is a 74 year old male with PMHx of NSCLC (R), Squamous cell lung cancer, Oxygen dependent COPD, HTN, Hyperlipidemia, NIDDM type II, CAD s/p stenting, Chronic diastolic CHF; presents via EMS for evaluation of acutely worsening shortness of breath. History is obtained from son at bedside as patient is quite lethargic during my bedside assessment in the ER. He is currently requiring BiPAP and had just received a dose of Ativan to allow him to tolerate the mask. Son states that he left for work earlier this morning around 5 AM at which time patient was not showing any signs of distress. He then received a phone call at work stating that patient had noted difficulty breathing and was being transported to the hospital, of note patient's son is a dispatcher at [employer]. Patient was recently discharged from our facility for the second time, initially admitted on 04/25 to 04/29 and then again on 04/30 to 05/03, both admissions were related to COPD exacerbation and pneumonia. His latter admission also included diuresis secondary to acute CHF exacerbation. Patient's overall prognosis secondary to his carcinoma is quite poor. He had been discharged to [facility] where he had been receiving therapy. Per his son he was doing relatively well initially then seemed to take a step back which son attributes to discontinuation of his steroids and antibiotics. He had been discharged on a short course of prednisone and Levaquin. There has been prior discussion about hospice the patient has not agreed to make this transition at this time. He left [facility] and went to live with his son and seemed to be d oing relatively well up until today. Patient is oxygen dependent at baseline with a requirement of 4.5 to 5 L nasal cannula. He has not been on any treatment recently, last treatment was on 04/11/2019. His oncologist is Dr. Mcarthur. He is in quite some respiratory distress with noted intercostal re tractions, tachycardia, tachypnea with borderline low blood pressure as well. He has been found to have a significant leukocytosis with a white count of 30.9 and noted left shift. He also has some mild hyponatremia with a sodium of 133, BUN of 27, creatinine of 1.0, blood sugar of 463, noted anion gap of 33.9, BNP of 1434. Chest x-ray shows noted large right pleural effusion with previously noted stable necrotizing right upper lobe cavity is mention of interval increase in airspace opacity in the left mid lower lung zone which could be suggestive of pneumonitis. He had a recent CTA during his most recent admission which is negative for PE. I have ordered 10 units of insulin to be given secondary to significant hyperglycemia and will check serum and urine ketones. Will initiate IV diuresis in anticipation of right thoracentesis which will likely be done tomorrow. He will need very close monitoring so he is being admitted for this as well as initiation of broad-spectrum IV antibiotics given his recent hospitalization and underlying immunocompromised state, IV diuresis and right thoracentesis. He will be admitted to ICU due to need for close monitoring and low threshold for decompensation. Discussed CODE STATUS with son and patient is DNI, agreeable to CPR, medications and ICU admission. Review of Systems General: Reports: ROS unobtainable due to mental status (obtained from son at bedside) Const: Denies: fever, chills or change in appetite Eyes: Denies: change in vision ENMT: Reports: dry mouth Card: Reports: swelling of feet/ankles and shortness of breath on exertion (chronic); Denies: chest pain Resp: Reports: shortness of breath (chronic), non-productive cough (chronic, unchanged) and coughing up blood (chronic, intermittently) GI: Denies: abdominal pain, nausea, vomiting or blood in stool Musc: Denies: back pain Skin/Breast: Denies: rash Neuro: Reports: weakness in extremities Psych: Denies: anxiety Medications/Allergies Home Medications Medication Instructions Recorded Confirmed Last Taken Type Lactobacillus rhamnosus GG 1 cap PO DAILY 05/25/19 05/25/19 Unknown History bisacodyl [Dulcolax (bisacodyl)] 10 mg HI DAILY PRN 05/25/19 05/25/19 Unknown History fluticasone propion-salmeterol 1 puff INHALATION BID 05/25/19 05/25/19 Unknown History [Advair Diskus] ipratropium-albuterol 3 ml INHALATION Q4H 05/25/19 05/25/19 Unknown History magnesium hydroxide [Milk of 30 ml PO DAILY PRN 05/25/19 05/25/19 Unknown History Magnesia] Allergies Allergy/AdvReac Type Severity Reaction Status Date / Time No Known Allergies Allergy Verified 04/25/19 11:16 PFSH Acute PFSH: Medical History CAD (coronary artery disease) CHF (congestive heart failure) COPD (chronic obstructive pulmonary disease) Stable. On 3.5 L of oxygen. He reports his breathing is about at baseline. Will make transition to skilled care today. HLD (hyperlipidemia) HTN (hypertension) Myocardial infarction (~1996) NSCLC of right lung Restrictive lung disease Surgical History Hx of hernia repair 2009 Stented coronary artery 1996 Family History Father CHF (congestive heart failure) Sister Cancer Mother Heart disease Social History Smoking and tobacco status: former smoker Quit status (tobacco): has quit using tobacco Year quit tobacco: 1 month ago Alcohol intake: never Lives independently: Yes Household members: other Details: Son lives next door Marital status: / Current occupational status: retired Vitals/I&O/Wt Last Vital Signs Temp 98.2 F 05/25/19 14:27 Pulse 126 H 05/25/19 16:20 Resp 40 H 05/25/19 16:19 BP 103/59 05/25/19 14:27 Pulse Ox 94 05/25/19 16:20 Weight last 48 hrs Weight 61.689 kg Physical Exam Const: COMMON NORMALS: no apparent distress GENERAL APPEARANCE: anxious and ill appearing; not comfortable NUTRITIONAL APPEARANCE: thin ORIENTATION/CONSCIOUSNESS: Yes lethargic OTHER: -arousable to verbal and tactile stimulation for brief periods of time HENMT: COMMON NORMALS: normocephalic, head/scalp atraumatic and hearing grossly normal bilaterally HEAD & SCALP: normocephalic and atraumatic MOUTH: moist mucous membranes abnormal Details: parched Eye: COMMON NORMALS: PERRL, EOMs intact bilaterally and conjunctivae normal CONJUNCTIVA: Yes conjunctivae normal PUPIL: Yes PERRL Neck/C-Spine: COMMON NORMALS: full ROM GENERAL: Yes normal visual inspection and Yes trachea midline Resp: EFFORT & INSPECTION: Yes symmetric chest movement, Yes tachypneic, Yes respiratory distress and Yes uses accessory muscles (noted intercostal retractions) OTHER: -significantly diminshed breath sounds on the R, some crackles; diminished on the L though not quite as evident as on the R -currently on BiPAP (45%/03/04) Cardio: COMMON NORMALS: regular rhythm, S1 normal heart sound, S2 normal heart sound and no murmurs RATE: tachycardic RHYTHM: regular rhythm HEART SOUNDS: S1 normal and S2 normal GI: COMMON NORMALS: normal to inspection, nondistended, normoactive bowel sounds, soft to palpation and non-tender PALPATION: Yes soft Extremity: COMMON NORMALS: normal to inspection, full ROM and no clubbing, cyanosis or edema; negative for no pedal edema Neuro: COMMON NORMALS: oriented x3, moves all extremities, no focal motor deficits and no sensory deficits noted Psych: OTHER: -unable to assess due to lethargy Skin: COMMON NORMALS: no rashes or lesions noted, no jaundice, no petechiae and no mottling GENERAL SKIN EXAM: no rashes or lesions noted Sepsis: Is patient septic: Yes Focused sepsis exam performed: Yes Focu sed sepsis exam: -Patient is in active respiratory distress, requiring BiPAP, with noted accessory muscle use, mental status change, tachycardia, tachypnea and borderline low BP in immunocompromised patient -noted significant leukocytosis with left shift -evidence of fluid overload so no IVF given -started on broad spectrum abx (Vanc/Zosyn/Levaquin) given recent hospitaliza tions and immunocompromised state Date exam was performed: 05/25/19 Time exam was performed: 17:45 Data : 05/25/19 15:10 05/25/19 15:10 Micro: Microbiology 05/25/19 15:10 Blood Culture - Preliminary Blood SPECIMEN COLLECTED 05/25/19 15:35 Blood Culture - Preliminary Blood SPECIMEN COLLECTED A&P Assessment and plan (1) Respiratory failure: -Noted acute respiratory failure with increased respiratory effort, hypoxia, change in mental status, noted evidence of large right pleural effusion with pre-existing right lung cancer; cannot exclude pneumonitis. Could be m alignancy-related pleural effusion -Currently requiring BiPAP; informed with son that CODE STATUS is DO NOT INTUBATE -Close monitoring of respiratory status -We will initiate diuresis with IV Lasix secondary to noted large right pleural effusion -Request ultrasound-guided thoracentesis -teletypesetter monitor -Monitoring of vital signs, noted low normal blood pressure, may require pressor support to maintain MAP greater than 65 with diuresis -Continue to recent hospital admissions and noted evidence of possible infection as well as underlying immunocompromised state, will start on broad-spectrum IV antibiotics with Vanc/Zosyn/Levaquin -Check lactic acid -Follow-up blood cultures -Noted significant leukocytosis with left shift, trend WBC -Patient screened for influenza which was negative; had recent CTA which was negative for PE. If suspicious for VTE, may require re-evaluation -noted hypoxia on ABG (7.34/26.2/64.4) Status: Acute Qualifiers: Chronicity: acute on chronic Respiratory failure complication: hypoxia Qualified Code(s): J96.21 - Acute and chronic respiratory failure with hypoxia Code(s): J96.90 - Respiratory failure, unspecified, unspecified whether with hypoxia or hypercapnia (2) Pleural effusion, right: -Noted large pleural effusion on the right; previously not present -Noted evidence of respiratory distress, currently requiring BiPAP -Request ultrasound-guided thoracentesis with fluid analysis ordered -Close monitoring of respiratory status -Secondary to history of congestive heart failure will start on IV diuresis with Lasix Status: Acute Code(s): J90 - Pleural effusion, not elsewhere classified (3) Altered mental status: -Noted evidence of acute change in mental status, per son at bedside baseline is alert and oriented x3, currently quite lethargic. 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 Mcarthur, scheduled for an appointment on 05/27 -Overall prognosis is quite poor Status: Acute Code(s): C34.91 - Malignant neoplasm of unspecified part of right bronchus or lung (5) CHF exacerbation: -noted acute on chronic diastolic CHF as evidenced by fluid overload, BNP elevation (1434) -no baseline Echo so ordered -start on IV diuresis -daily weights, monitor Is & Os -monitor renal function, lytes with diuresis Status: Acute Qualifiers: Heart failure type: diastolic Qualified Code(s): I50.33 - Acute on chronic diastolic (congestive) heart failure Code(s): I50.9 - Heart failure, unspecified (6) Diabetes mellitus type 2 in nonobese: -has hx of NIDDM type II, last A1c-11.9 -noted significant hyperglycemia but has been on systemic steroids recently; noted increased anion gap, not acidotic; check serum and urine ketones -give 10 units of short-acting insulin now -start on ISS, Accucheks Status: Acute Code(s): E11.9 - Type 2 diabetes mellitus without complications Additional A&P Information -Oxygen dependent COPD, on 4-5 L at baseline -prior CO (1996), hx of CAD s/p stenting -HTN; borderline-low BP currently -Hyperlipidemia -Mild hyponatremia, likely pseudohyponatremia given significant hyperglycemia -son requested regular diet -GI ppx with PPI -DVT ppx with Lovenox -Dispo: came from home, just discharged from [facility] on 05/23 -Code status: DNI; ok with CPR, meds, ICU admission; discussed with son at bedside -ICU admission given noted acute respiratory distress, need for close monitoring due to low threshold for decompensation Attestations Medical Necessity Statement*: [facility] stay will require greater than 2 midnights for management of noted large R pleural effusion, IV diuresis, broad spectrum IV antibiotics, and continuous BiPAP secondary to acute respiratory distress. Time Spent in Patient Care: Greater than 35 minutes (>than 50% of time spent in counselling and/or direct pt care on unit) . Critical Care Time: The high probability of a clinically significant, sudden or life threatening deterioration of the patient's [respiratory, cardiovascular] system(s) required my full and direct attention, intervention and personal m anagement. The critical care time is as shown. This time is in addition to time spent performing any reported procedures but includes the following: [x] Data and vital sign review and interpretation [x] Patient assessment, examination and intervention [x] Documentation [x] Medication orders and management Critical Care Time (min): 30 Coding Level of Care Code Acute Asphalt Machine Operator for Chg Fwd Diagnoses Respiratory failure J96.21 Chronicity: acute on chronic Respiratory failure complication: hypoxia Pleural effusion, right J90 Altered mental status R40.0 Altered mental status type: somnolence NSCLC of right lung C34.91 CHF exacerbation I50.33 Heart failure type: diastolic Diabetes mellitus type 2 in nonobese E11.9 Sepsis Event Note Evaluation Current stage of sepsis: sepsis Focused Exam Vital Signs Temp Pulse Pulse Resp BP Pulse Ox 05/25/19 17:58 119 H 93 05/25/19 16:20 126 H 94 05/25/19 16:19 126 H 40 H 94 05/25/19 15:05 134 H 92 05/25/19 14:27 98.2 F 134 H 26 H 103/59 89 L Date exam was performed: 05/25/19 Time exam was performed: 18:37
[2019-05-25 19:26] LABS: INR 1.08 (0.8-1.2)
[2019-05-25 19:32] LABS: Lactic Sepsis W/Reflex 3.3 mmol/L (0.5-2.2)
[2019-05-25 19:41] LABS: Procalcitonin 0.79 ng/mL (0-0.5)
[2019-05-25 20:29] LABS: Ketone (Acetest) Serum Positive (Negative)
[2019-05-25 21:02] LABS: Reflex Lactate Order REFLEX LACTIC ORDERD
[2019-05-25] MEDS: enoxaparin 40 mg/0.4 mL Syringe SUBCUT (21:15)
[2019-05-25] MEDS: FUROsemide 10 mg/mL SDV 4mL 40 MG IVP (21:18)
[2019-05-25 21:40] LABS: Lactic Acid level (Lactate) 2.2 mmol/L (0.5-2.2)
[2019-05-25] MEDS: morphine 4 mg/mL SDV 1 mL 2 MG IVP (21:48)
[2019-05-25] MEDS: vancomycin 1,000 MG in sodium chloride 0.9% 250 ML 250 MG IV (21:58)
[2019-05-25] MEDS: insulin glargine 100 units/1 mL 10 UNIT SUBCUT (22:47)
[2019-05-25] MEDS: piperacillin-tazobactam 3.375 GM in sodium chloride 0.9% (plus) 50 ML IV (23:08)
[2019-05-26] VITALS (64 sets, daily range): BP systolic 76–110; BP diastolic 50–74; PULSE 93–190; RESP 14–48; TEMP 36.2–37; O2SAT 87–96
[2019-05-26] LABS: Urine Appearance SL Hazy (CLEAR); Urine Color Yellow (Yellow)
[2019-05-26 00:01] LABS: Bilirubin Urine Neg (NEGATIVE); Blood Urine 3+ (Negative); Glucose Urine UA 4+ (Normal); Ketones Urine 2+ (Negative); Nitrate Urine Negative (Negative); Protein Urine Neg (Negative); Sulfosalicylic Acid Urine Negative; Urobilinogen Urine Norm (Negative); pH Urine 5 (5-7)
[2019-05-26 00:02] LABS: Add Urine Microscopic? YES; Leukocyte Esterase Urine Negative (Negative)
[2019-05-26 00:03] LABS: Hyaline Casts Urine 25-40
[2019-05-26 00:04] LABS: RBC Urine 25-40 /hpf (0-2); Squamous Epithelial Cell Urine 15-25 (0-5); Transitional Epi Cells Urine 0-4 /hpf; WBC Urine 0-4 /hpf (0-5)
[2019-05-26 00:05] LABS: Add Urine Culture? No; Bacteria Urine 1+
[2019-05-26] MEDS: metoprolol tartrate 1 mg/1 mL SDV 5 mL 5 MG IV (00:13)
[2019-05-26 00:14] LABS: Anion Gap 35.2 (5-19); Blood Urea Nitrogen 41 mg/dL (8-23); Calcium 10.5 mg/dL (8.5-10.5); Carbon Dioxide 13 mmol/L (22-29); Chloride 89 mmol/L (98-107); Magnesium 2.2 mg/dL (1.7-2.3); Osmolality Calculated 299 mOsm/kg (285-295); Phosphorus 3.9 mg/dL (2.5-4.5); Potassium 4.2 mmol/L (3.5-5.1); Sodium 133 mmol/L (136-145)
[2019-05-26 00:16] LABS: Glucose 559 mg/dL (65-115)
[2019-05-26] MEDS: sodium chloride 0.9% 1,000 ML 500 ML IV (00:38)
[2019-05-26] MEDS: insulin regular-human 250 UNIT in sodium chloride 0.9% 250 ML 12.9 UNIT IV (01:08)
--- NOTE | 2019-05-26 01:42 | PC.NURSE ---
At 0000 pt HR became elevated in SVT, rate 190's remains on bipap and lethargic, non-verbal and unable to follow commands. Dr. Lezama on unit and arrived at bedside attempted vagal maneuvers by bending pt forward. Pt unable to follow commands by bearing down. Received verbal orders to give 2.5 IV lopressor and 1,000ml bolus over 2 hrs. Code status was discussed again with SonFidel at bedside and pt is a DNR. Peripheral pulses faint throughout. Left chest port was accessed via sterile technique. See MAR and v/s flowsheet. Current HR is 98 sinus rhythm and BP/56.
[2019-05-26] MEDS: sodium chloride 0.9% 1,000 ML 125 ML IV (02:49)
[2019-05-26 04:49] LABS: Basophils % 0.1 %; Hematocrit 33.1 % (42.0-52.0); Hemoglobin 10.1 g/dL (11.7-16.6); Lymphocytes # 0.5 10^3/uL (0.8-4.8); Lymphocytes % 2.1 %; Mean Corpuscular HGB Conc 30.5 g/dL (30.0-36.0); Mean Corpuscular Hemoglobin 25.1 pg (28.0-34.0); Mean Corpuscular Volume 82.1 fL (80-94); Mean Platelet Volume 10.2 fL (7.4-10.4); Monocytes # 0.7 10^3/uL (0.2-0.9); Monocytes % 3.1 %; Neutrophils # 22.2 10^3/uL (1.8-7.7); Neutrophils % 93.7 %; Nucleated Red Blood Cells % 0 %; Platelet Count 244 10^3/cmm (130-400); Red Blood Count 4.03 10^6/uL (4.1-5.3); White Blood Count 23.7 10^3/uL (4.0-10.0)
[2019-05-26] MEDS: sodium chloride 0.9% 250 ML IV (04:50)
[2019-05-26 05:01] LABS: Anion Gap 22.5 (5-19); Blood Urea Nitrogen 38 mg/dL (8-23); Calcium 10.3 mg/dL (8.5-10.5); Carbon Dioxide 23 mmol/L (22-29); Chloride 97 mmol/L (98-107); Glucose 309 mg/dL (65-115); Osmolality Calculated 297 mOsm/kg (285-295); Potassium 3.5 mmol/L (3.5-5.1); Sodium 139 mmol/L (136-145)
[2019-05-26] MEDS: piperacillin-tazobactam 3.375 GM in sodium chloride 0.9% (plus) 50 ML IV ×2 (05:08→14:27)
--- NOTE | 2019-05-26 05:14 | PM.CCN ---
Critical Care Event Note Critical Care Event The high probability of a clinically significant, sudden or life threatening deterioration of the patient's cardiac and respiratory system(s) required my full and direct attention, intervention and personal management. The critical care time is as shown. This time is in addition to time spent performing any reported procedures but includes the following: x Data and vital sign review and interpretation x Patient assessment, examination and intervention x Documentation x Medication orders and management I was in the ICU and patient developed SVT up to 180-200s. Blood pressures were as low as 70 systolic. He responded to vagal maneuvers for brief periods of time. He was limited resuscitation at the time with only CPR and ICU admission. Evaluating the situation, he had had little urine output despite Lasix that had been administered. Went on and started him on some IV fluids. Also gave him a low-dose of metoprolol. After a liter of fluid in the beta-blockade, he quit having such significant SVT but remains critically ill appearing. He is started having increasing urine output. His blood sugars were also found to be in the mid 500 range after getting Solu-Medrol. He had had some ketones in his serum and insulin drip was started. I discussed with his son who is at the bedside. We talked about the fact that CPR without other measures would not really prolong the inevitable. With his comorbidities, in particular cancer and not being well enough to get continued chemotherapy, combined with continued decline in quality of life, ultimately was decided to change CODE STATUS to allow natural . Order has been written. If he is able to get by with less aggressive measures, so be it. He remains on the BiPAP. 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
--- NOTE | 2019-05-26 06:10 | PC.NURSE ---
Blood Glucose Pt glucose 176, within ordered target range. Notified physician about clarification of fluid orders containing dextrose. Verbal orders received to cut insulin units/hr down by half. Insulin drip rate should be running at 8.1 per protocol, rate is currently running at 4units/hr per verbal orders.
[2019-05-26 07:11] LABS: Glucose Point of Care 277 mg/dL (70-110)
[2019-05-26 07:11] LABS: Glucose Point of Care 366 mg/dL (70-110)
[2019-05-26 07:11] LABS: Glucose Point of Care 485 mg/dL (70-110)
[2019-05-26 07:11] LABS: Glucose Point of Care 328 mg/dL (70-110)
[2019-05-26 07:11] LABS: Glucose Point of Care 176 mg/dL (70-110)
[2019-05-26 07:11] LABS: Glucose Point of Care 149 mg/dL (70-110)
[2019-05-26 07:11] LABS: Glucose Point of Care 215 mg/dL (70-110)
[2019-05-26] MEDS: ipratropium-albuterol 3 mL Neb INHALATION ×4 (08:15→19:33)
[2019-05-26 08:22] LABS: Glucose Point of Care 154 mg/dL (70-110)
[2019-05-26] MEDS: pantoprazole 40 mg SDV IVP (09:10)
[2019-05-26] MEDS: levofloxacin-dextrose 5 % 750 MG/150 ML PREMIX 150 MG IV (09:10)
[2019-05-26] MEDS: FUROsemide 10 mg/mL SDV 4mL 40 MG IVP (09:11)
[2019-05-26] MEDS: guaiFENesin 600 mg Tablet PO (09:34)
[2019-05-26] MEDS: aspirin 81 mg Chew Tablet PO (09:34)
[2019-05-26] MEDS: morphine 4 mg/mL SDV 1 mL 2 MG IVP ×2 (11:42→23:48)
--- NOTE | 2019-05-26 11:45 | PM.PN ---
Subjective Subjective: Interval history: Noted overnight events including SVT, DKA on insulin drip. Will order serial BMPs, frequent accuchecks, hold steroids, is on IVF hydration. Continues to require BiPAP. Hypotensive, tachycardic, tachypneic. Code status now DNR/DNI. Patient has decompensated significantly since my assessment in the ER yesterday evening. He is minimally responsive, shows continued tachycardia, tachypnea. On levophed @ 1.5 mcg/min. IV fluid hydration discontinued due to significant respiratory distress, patient unable to tolerate BiPAP so remains on nasal cannula. Had a very barb and detailed discussion with patient's family at bedside. In light of significant change in patient's clinical status prognosis is quite poor. We discussed thoracentesis that had been requested for today but given patient's inability to tolerate any exertion or positional changes at this time without increased distress this will not be possible. Family understands very of situation and are open to potentially transitioning the patient to comfort measures but would like to wait for his sister who is on her way before making the transition. Anion gap closed, discontinue insulin drip, most recent blood sugars 164. Care plan will otherwise remain unchanged. Medications: Reviewed: Yes Medication Review Details: Active Medications Generic Name Dose Route Start Last Admin Trade Name Freq PRN Reason Stop Dose Admin Acetaminophen 650 mg 05/25/19 18:50 Tylenol PO Q6H PRN Mild/Mod Pain Or Temp >/= 101 Albuterol/Ipratrop ium 3 ml 05/26/19 00:00 05/26/19 11:35 Duoneb INHALATION 3 ml Q4H.RESPIRATORY S CH Administration Aspirin 81 mg 05/26/19 09:00 05/26/19 09:34 Aspirin Chewable PO 81 mg DAILY KENAN Administration Dextrose 25 ml 05/25/19 18:50 D50w IVP ONCE PRN hypoglycemia prot ocol Protocol Dextrose 50 ml 05/25/19 18:50 D50w IVP PRN PRN hypoglycemia prot ocol Protocol Enoxaparin Sodium 40 mg 05/25/19 18:50 05/25/19 21:15 Lovenox SUBCUT 40 mg Q24H KENAN Administration Furosemide 40 mg 05/25/19 18:50 05/26/19 09:11 Lasix IVP 40 mg BID KENAN Administration Glucagon 1 mg 05/25/19 18:50 Glucagen IM ONCE PRN Adult Acute Hypog lycemia Prot. Protocol Guaifenesin 600 mg 05/25/19 18:50 05/26/19 09:34 Mucinex PO 600 mg BID KENAN Administration Vancomycin HCl 1,0 00 mg/ 250 mls @ 250 mls /hr 05/25/19 21:00 05/25/19 23:12 Sodium Chloride IV Infused Q18H KENAN Infusion Protocol Piperacillin Sod/T azobactam 50 mls @ 12.5 mls /hr 05/25/19 22:00 05/26/19 05:08 Sod 3.375 gm/ So dium Chloride IV 12.5 mls/hr Q8H KENAN Administration Protocol Levofloxacin/Dextr ose 750 mg in 150 mls @ 150 mls/hr 05/26/19 09:00 05/26/19 09:10 Levaquin-D5w IV 150 mls/hr DAILY KENAN Administration Protocol Norepinephrine Bit artrate 4 mg 254 mls @ 0 mls/h r 05/25/19 18:50 05/26/19 06:20 / Dextrose IV 2 mcg/min .Q0M KENAN 7.6 mls/hr Administration Protocol Per Protocol Dextrose 500 mls @ 100 mls /hr 05/25/19 18:50 D5w IV ONCE PRN Adult Acute Hypog lycemia Prot Protocol Insulin Human Regu lar 250 unit 252.5 mls @ 0 mls /hr 05/26/19 00:30 05/26/19 06:00 / Sodium Chlorid e IV 4 unit/hr .Q0M KENAN 4 mls/hr Titration Protocol Per Protocol Sodium Chloride 1,000 mls @ 125 m ls/hr 05/26/19 02:15 05/26/19 06:00 Sodium Chloride 0.9% IV 125 mls/hr .Q8H KENAN Infusion Insulin Aspart 0 unit 05/25/19 18:50 05/26/19 09:08 Novolog SUBCUT 18 unit WM&BEDTIME KENAN Administration Protocol Insulin Glargine 10 unit 05/25/19 21:00 05/25/19 22:47 Lantus SUBCUT 10 unit BEDTIME KENAN Administration Lactobacillus Acid ophilus 1 tab 05/26/19 09:00 05/26/19 09:35 Floranex PO Not Given DAILY KENAN Lorazepam 0.5 mg 05/25/19 18:50 05/25/19 20:53 Ativan IVP 0.5 mg TID PRN Administration ANXIETY Lorazepam 0.5 mg 05/25/19 19:56 05/25/19 21:49 Ativan IVP 0.5 mg ONCE PRN Administration ANXIETY Magnesium Hydroxid e 30 ml 05/25/19 18:50 Milk Of Magnesia PO DAILY PRN Constipation Methylprednisolone Sodium Succinate 60 mg 05/25/19 18:00 05/26/19 05:06 Solu-Medrol IVP 60 mg Q6H KENAN Administration Morphine Sulfate 2 mg 05/25/19 18:50 05/25/19 21:48 Morphine IVP 2 mg Q4H PRN Administration SEVERE PAIN Ondansetron HCl 4 mg 05/25/19 18:50 Zofran IVP Q6H PRN vomiting, or N/V if npo Pantoprazole Sodiu m 40 mg 05/26/19 09:00 05/26/19 09:10 Protonix IVP 40 mg DAILY KENAN Administration No Known Allergies Allergy (Verified 04/25/19 11:16) Vitals/I&O/Wt Last Vital Signs Temp 98.6 F 05/26/19 06:00 Pulse 123 H 05/26/19 11:37 Resp 29 H 05/26/19 08:19 BP 82/59 05/26/19 06:00 Pulse Ox 90 05/26/19 11:37 05/25/19 05/26/19 05/26/19 22:59 06:59 14:59 Intake Total 2008.097 / 2008.097 Output Total 375 / 375 75 / 75 Balance 1634.097 / 1634.097 -75 / -75 Weight last 48 hrs Weight 60.419 kg Weight 61.689 kg Physical Exam Const: COMMON NORMALS: no apparent distress GENERAL APPEARANCE: anxious, lethargic, ill appearing and frail appearing; not comfortable NUTRITIONAL APPEARANCE: thin ORIENTATION/CONSCIOUSNESS: Yes lethargic OTHER: -arousable to verbal and tactile stimulation for brief periods of time -almost ashen complexion HENMT: COMMON NORMALS: normocephalic, head/scalp atraumatic and hearing grossly normal bilaterally HEAD & SCALP: normocephalic and atraumatic MOUTH: moist mucous membranes abnormal Details: parched Eye: COMMON NORMALS: PERRL, EOMs intact bilaterally and conjunctivae normal CONJUNCTIVA: Yes conjunctivae normal PUPIL: Yes PERRL Neck/C-Spine: COMMON NORMALS: full ROM GENERAL: Yes normal visual inspection and Yes trachea midline Resp: EFFORT & INSPECTION: Yes symmetric chest movement, Yes tachypneic, Yes respiratory distress and Yes uses accessory muscles (noted intercostal and supraclavicular retractions) AUSCULTATION: crackles and diminished lung sounds OTHER: -significantly diminshed breath sounds on the R, crackles bilaterally; diminished on the L though not quite as evident as on the R -currently on 5 L NC Cardio: COMMON NORMALS: regular rhythm, S1 normal heart sound, S2 normal heart sound and no murmurs RATE: tachycardic RHYTHM: regular rhythm HEART SOUNDS: S1 normal and S2 normal GI: COMMON NORMALS: normal to inspection, nondistended, normoactive bowel sounds, soft to palpation and non-tender PALPATION: Yes soft : BLADDER/KIDNEY EXAM: Yes catheter in place Catheter type (Male): urethral Extremity: COMMON NORMALS: normal to inspection, full ROM and no clubbing, cyanosis or edema; negative for no pedal edema Neuro: COMMON NORMALS: moves all extremities, no focal motor deficits and no sensory deficits noted SENSORIUM/ORIENTATION: Yes lethargic Psych: OTHER: -unable to assess due to lethargy Skin: COMMON NORMALS: no rashes or lesions noted, no jaundice, no petechiae and no mottling GENERAL SKIN EXAM: no rashes or lesions noted Urinary Catheter Management^: Rock: Cath Placed During This Visit: yes Urethral Indwelling: Yes Reason for Continuing Indwelling Catheter: Accurate Measurement of Urinary Output in Critically Ill Patients Urinary Catheter Date of Insertion: 05/25/19 Urinary Catheter Time of Insertion: 21:54 Data : 05/26/19 04:25 05/26/19 12:07 Micro: Microbiology 05/25/19 15:10 Blood Culture - Preliminary Blood SPECIMEN COLLECTED 05/25/19 15:35 Blood Culture - Preliminary Blood SPECIMEN COLLECTED A&P Assessment and plan (1) Respiratory failure: -Noted acute respiratory failure with increased respiratory effort, hypoxia, change in mental status, noted evidence of large right pleural effusion with pre-existing right lung cancer; cannot exclude pneumonitis. Could be malignancy-related pleural effusion -Currently requiring BiPAP; informed with son that CODE STATUS is DO NOT INTUBATE -Close monitoring of respiratory status -We will initiate diuresis with IV Lasix secondary to noted large right pleural effusion -Request ultrasound-guided thoracentesis but with decline in clinical status, cannot proceed with procedure -Telemetry monitoring -Monitoring of vital signs, noted low blood pressure, requires pressor support to maintain MAP>65 with diuresis -Continue to recent hospital admissions and noted evidence of possible infection as well as underlying immunocompromised state, will start on broad-spectrum IV antibiotics with Vanc/Zosyn/Levaquin -lactic acid trending down: 3.3->2.2 -blood cultures: prelim negative -Noted significant leukocytosis with left shift, trending down, continue to monitor WBC -Patient screened for influenza which was negative; had recent CTA which was negative for PE. If suspicious for VTE, may require re-evaluation -noted hypoxia on ABG (7.34/26.2/64.4) Status: Acute Qualifiers: Chronicity: acute on chronic Respiratory failure complication: hypoxia Qualified Code(s): J96.21 - Acute and chronic respiratory failure with hypoxia Code(s): J96.90 - Respiratory failure, unspecified, unspecified whether with hypoxia or hypercapnia (2) Pleural effusion, right: -Noted large pleural effusion on the right; previously not present -Noted evidence of respiratory distress, currently requiring BiPAP -Request ultrasound-guided thoracentesis with fluid analysis ordered -Close monitoring of respiratory status -Secondary to history of congestive heart failure will start on IV diuresis with Lasix Status: Acute Code(s): J90 - Pleural effusion, not elsewhere classified (3) DKA, type 2: -has hx of NIDDM type II, last A1c-11.9; with DKA as evidenced by increased anion gap, serum and urine ketones, significant hyperglycemia -noted significant hyperglycemia but has been on systemic steroids recently; noted increased anion gap, not acidotic; positive for serum and urine ketones -on insulin drip -frequent Accucheks Status: Acute Qualifiers: Diabetes mellitus complication detail: without coma Diabetes mellitus intermission coordinator insulin use: without intermission coordinator use Qualified Code(s): E11.10 - Type 2 diabetes mellitus with ketoacidosis without coma Code(s): E11.10 - Type 2 diabetes mellitus with ketoacidosis without coma (4) Altered mental status: -Noted evidence of acute change in mental status, per son at bedside baseline is alert and oriented x3, currently quite lethargic. 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 Mcarthur, scheduled for an appointment on Thursday, 05/27 -Overall prognosis is quite poor Status: Acute Code(s): C34.91 - Malignant neoplasm of unspecified part of right bronchus or lung (6) CHF exacerbation: -noted acute on chronic diastolic CHF as evidenced by fluid overload, BNP elevation (1434) -no baseline Echo so ordered -start on IV diuresis -daily weights, monitor Is & Os -monitor renal function, lytes with diuresis Status: Acute Qualifiers: Heart failure type: diastolic Qualified Code(s): I50.33 - Acute on chronic diastolic (congestive) heart failure Code(s): I50.9 - Heart failure, unspecified (7) Diabetes mellitus type 2 in nonobese: -has hx of NIDDM type II, last A1c-11.9 -noted significant hyperglycemia but has been on systemic steroids recently; noted increased anion gap, not acidotic; check serum and urine ketones -give 10 units of short-acting insulin now -start on ISS, Accucheks Status: Acute Code(s): E11.9 - Type 2 diabetes mellitus without complications Additional A&P Information -Oxygen dependent COPD, 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 Now resolved -son requested regular diet -GI ppx with PPI -DVT ppx with Lovenox -Dispo: came from home, just discharged from [facility] on 05/23 -Code status: DNI/DNR -ICU care given noted acute respiratory distress, need for close monitoring due to low threshold for decompensation, insulin drip and pressor support -very guarded prognosis Attestations Medical Necessity Statement*: Patient requires hospitalization for continued management of hypotension, on pressor support, DKA on insulin drip, large R pleural effusion. Time Spent in Patient Care: Greater than 35 minutes (>than 50% of time spent in counselling and/or direct pt care on unit). Coding Level of Care Code Acute Advance Scout for [facility] Fwd Exam Comprehensive Diagnoses Respiratory failure J96.21 Chronicity: acute on chronic Respiratory failure complication: hypoxia Pleural effusion, right J90 DKA, type 2 E11.10 Diabetes mellitus complication detail: without coma Diabetes mellitus intermission coordinator insulin use: without assisted use Altered mental status R40.0 Altered mental status type: somnolence NSCLC of right lung C34.91 CHF exacerbation I50.33 Heart failure type: diastolic Diabetes mellitus type 2 in nonobese E11.9
[2019-05-26 12:40] LABS: Anion Gap 16.3 (5-19); Blood Urea Nitrogen 33 mg/dL (8-23); Calcium 10.3 mg/dL (8.5-10.5); Carbon Dioxide 25 mmol/L (22-29); Chloride 102 mmol/L (98-107); Creatinine Clr Calc Pharmacy 69.2301; Glucose 131 mg/dL (65-115); Osmolality Calculated 289 mOsm/kg (285-295); Potassium 3.3 mmol/L (3.5-5.1); Sodium 140 mmol/L (136-145)
[2019-05-26] MEDS: vancomycin 1,000 MG in sodium chloride 0.9% 250 ML 250 MG IV (14:28)
[2019-05-26 15:17] LABS: Glucose Point of Care 92 mg/dL (70-110)
[2019-05-26 16:41] LABS: Glucose Point of Care 164 mg/dL (70-110)
[2019-05-26 18:13] LABS: Anion Gap 18.2 (5-19); Blood Urea Nitrogen 32 mg/dL (8-23); Calcium 10.1 mg/dL (8.5-10.5); Carbon Dioxide 25 mmol/L (22-29); Chloride 102 mmol/L (98-107); Creatinine Clr Calc Pharmacy 69.2301; Glucose 190 mg/dL (65-115); Osmolality Calculated 296 mOsm/kg (285-295); Potassium 3.2 mmol/L (3.5-5.1); Sodium 142 mmol/L (136-145)
--- NOTE | 2019-05-26 19:33 | PC.NURSE ---
Maximus chávez contraindication due to non-invasive comfort care measures in place.
[2019-05-27] VITALS (12 sets, daily range): BP systolic 90; BP diastolic 54; PULSE 94–111; RESP 16–39; TEMP 36.8; O2SAT 90–97
[2019-05-27] MEDS: ipratropium-albuterol 3 mL Neb INHALATION ×5 (04:53→19:50)
--- NOTE | 2019-05-27 10:57 | PC.CHAP ---
Pastoral Care Encounter/Spiritual Assessment Type of Contact [] Declined agile project manager visit [] Patient/Family/Request visit [] Outpatient visit [] Follow-up visit [] Physician referral [] Code/Alert [x] Routine visit [] Staff referral [] Actively dying [] Patient sleeping [x] Family support [] [] Out of room [x] Palliative care [] [] Receiving care in room [] Pre-surgical visit [] Trauma [] Long length of stay [x] ICU visit [] Other: Relational/Emotional Strength [] Patient feels connected with others/family/visitors/staff [] Distress [] Loneliness/isolation [] Abandonment Spirituality of Patient [] Person of [place] [] Attends Mormon of their [place] [] Believes in Prayer [] Reads Bible or Orthodoxy materials [] There 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[employer] Interventions [] Prayer [] Active listening [] Non-anxious presence [] Spiritual/emotional support [] Crisis/trauma care [] Spiritual counseling [] Bereavement support [] Provided bereavement packet [] Provided Bible/devotional materials [] Provided toy/stuffed animal, coloring book to patient or family member [] Provided Communion [] Anointing/[place] [] Salvation [x] Completed spiritual assessment [] Other: Impact on Illness or Injury [] Angry [] Fearful [] Anxious [] Often cries [] Exhaustion [] Unable to work [] Unable to attend congregation [] Unable to walk/stand [] Unable to read [] Unable to drive [] Unable to eat/drink [] Unable to sleep [] Unable to be with family [] Patient intubated [] Other: Summary per nurse patient currently on palliative care 5 family members present Time spent with patient 10min
--- NOTE | 2019-05-27 11:29 | P.PN_ITS ---
Subjective Subjective: Interval history: No acute overnight events reported, has been more responsive today, more alert, able to converse with his family at bedside, good appetite. Is currently on 5 L nasal cannula, low normal blood pressure, mild sinus tachycardia. Medications: Reviewed: Yes Medication Review Details: Active Medications Generic Name Dose Route Start Last Admin Trade Name Freq PRN Reason Stop Dose Admin Acetaminophen 650 mg 05/25/19 18:50 Tylenol PO Q6H PRN Mild/Mod Pain Or Temp >/= 101 Albuterol/Ipratrop ium 3 ml 05/26/19 00:00 05/27/19 08:36 Duoneb INHALATION 3 ml Q4H.RESPIRATORY S CH Administration Atropine Sulfate 4 drop 05/26/19 18:25 Isopto Atropine SUBLINGUAL Q2H PRN SECRETIONS Dextrose 25 ml 05/25/19 18:50 D50w IVP ONCE PRN hypoglycemia prot ocol Protocol Dextrose 50 ml 05/25/19 18:50 D50w IVP PRN PRN hypoglycemia prot ocol Protocol Glucagon 1 mg 05/25/19 18:50 Glucagen IM ONCE PRN Adult Acute Hypog lycemia Prot. Protocol Guaifenesin 600 mg 05/25/19 18:50 05/27/19 10:10 Mucinex PO Not Given BID KENAN Norepinephrine Bit artrate 4 mg 254 mls @ 0 mls/h r 05/25/19 18:50 05/26/19 16:30 / Dextrose IV Infused .Q0M KENAN Titration Protocol Per Protocol Dextrose 500 mls @ 100 mls /hr 05/25/19 18:50 D5w IV ONCE PRN Adult Acute Hypog lycemia Prot Protocol Lorazepam 2 mg 05/26/19 18:26 Ativan IVP Q4H PRN ANXIETY Methylprednisolone Sodium Succinate 60 mg 05/25/19 18:00 05/26/19 11:42 Solu-Medrol IVP 60 mg Q6H KENAN Administration Morphine Sulfate 2 mg 05/25/19 18:50 05/26/19 23:48 Morphine IVP 2 mg Q4H PRN Administration SEVERE PAIN Ondansetron HCl 4 mg 05/25/19 18:50 Zofran IVP Q6H PRN vomiting, or N/V if npo No Known Allergies Allergy (Verified 04/25/19 11:16) Vitals/I&O/Wt Last Vital Signs Temp 97.2 F L 05/26/19 14:30 Pulse 110 H 05/27/19 08:43 Resp 16 05/27/19 08:36 BP 92/59 05/26/19 19:00 Pulse Ox 97 05/27/19 08:36 05/26/19 05/27/19 05/27/19 22:59 06:59 14:59 Intake Total 46.660 / 835.493 Output Total 1000 / 1075 350 / 1425 Balance -953.340 / -239.507 -350 / -589.507 Weight last 48 hrs Weight 60.419 kg Weight 61.689 kg Physical Exam Const: COMMON NORMALS: no apparent distress and alert GENERAL APPEARANCE: cooperative, comfortable, ill appearing and frail appearing NUTRITIONAL APPEARANCE: thin OTHER: -almost ashen complexion HENMT: COMMON NORMALS: normocephalic, head/scalp atraumatic and hearing grossly normal bilaterally HEAD & SCALP: normocephalic and atraumatic MOUTH: moist mucous membranes abnormal Details: parched Eye: COMMON NORMALS: PERRL, EOMs intact bilaterally and conjunctivae normal CONJUNCTIVA: Yes conjunctivae normal PUPIL: Yes PERRL Neck/C-Spine: COMMON NORMALS: full ROM GENERAL: Yes normal visual inspection and Yes trachea midline Resp: EFFORT & INSPECTION: Yes symmetric chest movement, Yes tachypneic, No respiratory distress and No uses accessory muscles (noted intercostal and supraclavicular retractions) AUSCULTATION: crackles and diminished lung sounds OTHER: -significantly diminshed breath sounds on the R, crackles bilaterally; diminished on the L though not quite as evident as on the R; slightly improved air entry today -currently on 5 L NC -dyspnea with minimal exertion Cardio: COMMON NORMALS: regular rhythm, S1 normal heart sound, S2 normal heart sound and no murmurs RATE: tachycardic RHYTHM: regular rhythm HEART SOUNDS: S1 normal and S2 normal GI: COMMON NORMALS: normal to inspection, nondistended, normoactive bowel sounds, soft to palpation and non-tender PALPATION: Yes soft : BLADDER/KIDNEY EXAM: Yes catheter in place Extremity: COMMON NORMALS: normal to inspection, full ROM and no clubbing, cyanosis or edema; negative for no pedal edema Neuro: COMMON NORMALS: moves all extremities, no focal motor deficits and no sensory deficits noted SENSORIUM/ORIENTATION: Yes alert Psych: COMMON NORMALS: affect normal and speech normal SPEECH: Yes normal speech Skin: COMMON NORMALS: no rashes or lesions noted, no jaundice, no petechiae and no mottling GENERAL SKIN EXAM: no rashes or lesions noted Urinary Catheter Management^: Rock: Cath Placed During This Visit: yes Urethral Indwelling: Yes Reason for Continuing Indwelling Catheter: Accurate Measurement of Urinary Output in Critically Ill Patients Urinary Catheter Date of Insertion: 05/25/19 Urinary Catheter Time of Insertion: 21:54 Data : 05/26/19 04:25 05/26/19 17:15 Micro: Microbiology 05/25/19 15:10 Blood Culture - Preliminary Blood NEGATIVE TO DATE 05/25/19 15:35 Blood Culture - Preliminary Blood NEGATIVE TO DATE A&P Assessment and plan (1) Respiratory failure: -Noted acute respiratory failure with increased respiratory effort, hypoxia, change in mental status, noted evidence of large right pleural effusion with pre-existing right lung cancer; cannot exclude pneumonitis. Could be malignancy-related pleural effusion -Currently requiring BiPAP; informed with son that CODE STATUS is DO NOT INTUBATE -Close monitoring of respiratory status -Was on diuresis with IV Lasix secondary to noted large right pleural effusion -initial plan was for ultrasound-guided thoracentesis but with decline in clinical status, cannot proceed with procedure -Telemetry monitoring -continue monitoring of vital signs, noted low blood pressure, requires pressor support to maintain MAP>65 with diuresis -due to recent hospital admissions and noted evidence of possible infection as well as underlying immunocompromised state, will start on broad-spectrum IV antibiotics with Vanc/Zosyn/Levaquin -lactic acid trending down: 3.3->2.2 -blood cultures: prelim negative -Noted significant leukocytosis with left shift, trending down, continue to monitor WBC -Patient screened for influenza which was negative; had recent CTA which was ne gative for PE. If suspicious for VTE, may require re-evaluation -noted hypoxia on ABG (7.34/26.2/64.4) Status: Acute Qualifiers: Chronicity: acute on chronic Respiratory failure complication: hypoxia Qualified Code(s): J96.21 - Acute and chronic respiratory failure with hypoxia Code(s): J96.90 - Respiratory failure, unspecified, unspecified whether with hypoxia or hypercapnia (2) Pleural effusion, right: -Noted large pleural effusion on the right; previously not present -Noted evidence of respiratory distress, currently requiring BiPAP -Request ultrasound-guided thoracentesis with fluid analysis ordered -Close monitoring of respiratory status -Secondary to history of congestive heart failure will start on IV diuresis with Lasix Status: Acute Code(s): J90 - Pleural effusion, not elsewhere classified (3) DKA, type 2: -has hx of NIDDM type II, last A1c-11.9; with DKA as evidenced by increased anion gap, serum and urine ketones, significant hyperglycemia -noted significant hyperglycemia but has been on systemic steroids recently; noted increased anion gap, not acidotic; positive for serum and urine ketones -off insulin drip -Accucheks Status: Resolved Qualifiers: Diabetes mellitus complication detail: without coma Diabetes mellitus halfway insulin use: without halfway use Qualified Code(s): E11.10 - Type 2 diabetes mellitus with ketoacidosis without coma Code(s): E11.10 - Type 2 diabetes mellitus with ketoacidosis without coma (4) Altered mental status: -Noted evidence of acute change in mental status, per son at bedside baseline is alert and oriented x3, currently quite lethargic. 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 Mcarthur, scheduled for an appointment on 05/27 -Overall prognosis is quite poor Status: Acute Code(s): C34.91 - Malignant neoplasm of unspecified part of right bronchus or lung (6) CHF exacerbation: -noted acute on chronic diastolic CHF as evidenced by fluid overload, BNP elevation (1434) -no baseline Echo -off IV diuresis -daily weights, monitor Is & Os -monitor renal function, lytes with diuresis Status: Acute Qualifiers: Heart failure type: diastolic Qualified Code(s): I50.33 - Acute on chronic diastolic (congestive) heart failure Code(s): I50.9 - Heart failure, unspecified Additional A&P Information -Oxygen dependent COPD, 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 Now resolved -son requested regular diet -GI ppx with PPI -DVT ppx with Lovenox -Dispo: came from home, just discharged from [facility] on 05/23. Discuss hospice at home vs. SNF -Code status: DNI/DNR -ICU care given noted acute respiratory distress, need for close monitoring due to low threshold for decompensation, insulin drip and pressor support -very guarded prognosis -transfer to floor for continued comfort measures Attestations Medical Necessity Statement*: Patient requires hospitalization for continued care pending appropriate disposition. Time Spent in Patient Care: Greater than 35 minutes (>than 50% of time spent in counselling and/or direct pt care on unit) . Coding Level of Care Code Acute Precision Crop Manager for g Fwd Exam Comprehensive Diagnoses Respiratory failure J96.21 Chronicity: acute on chronic Respiratory failure complication: hypoxia Pleural effusion, right J90 DKA, type 2 E11.10 Diabetes mellitus complication detail: without coma Diabetes mellitus exterminator helper insulin use: without exterminator helper use Altered mental status R40.0 Altered mental status type: somnolence NSCLC of right lung C34.91 CHF exacerbation I50.33 Heart failure type: diastolic
--- NOTE | 2019-05-27 13:01 | PC.NURSE ---
Report faxed to [facility]. Further report called and given to AIDE Muñoz. All questions answered. Pt to transport via bed.
--- NOTE | 2019-05-27 13:47 | PC.NURSE ---
Pt transferred to room 266 via bed. Pt tolerated well. Family oriented to room location on [facility]. Dietary restocked bereavement cart.
[2019-05-27] MEDS: morphine 4 mg/mL SDV 1 mL 2 MG IVP (22:15)
--- NOTE | 2019-05-27 22:40 | PM.DPN ---
Pronouncement Note Date and Time of Date of : 05/27/19 Time of : 22:28 Preliminary cause of : NSCLC of right lung Diagnoses/Contributing Factors (1) Respiratory failure: (2) Pleural effusion, right: (3) DKA, type 2: (4) CHF exacerbation: (5) SVT (supraventricular tachycardia): Additional Details Was actually on the floor seeing another patient when Mr. Vazquez sign stop me to say hello. We had interacted the other night when Mr. Drake was having recurrent SVT. Nursing staff was helping patient from the bedside commode. He had gotten in bed and asked for sip of water. He was having pain. All of the sudden patient became nonresponsive and his eyes deviated to the left. I was called into the room. At the time patient had no palpable pulses. He was having agonal breathing. Telemetry monitoring at that time showed SVT again. Intermittently patient had pulses. He was noted to be in A. fib with SVR short time later and eventually went into asystole. He was pronounced at 10:28 PM. Patient's family including son were at the bedside. Additional Data Confirmation of : no pulse, no respirations, no heart sounds and pupils fixed and dilated Family: at bedside Additional persons at bedside: nursing staff and other (myself) Attending physician: Mary Jane Polk MD Attending/PCP notified?: Attending will be notified Was code activated?: No Autopsy requested?: No Advance directives?: No Hospice patient?: No
--- NOTE | 2019-05-27 23:00 | PC.NURSE ---
Pt. noted to have SVT at 160bpm on telemetry monitoring than converted into ST 100-110bpm. This nurse went to check on patient. Pt. requested bedpan at 2209, this nurse and DIGITAL DESIGN ENGINEER assisted patient onto bedpan. Pt. removed from bedpan at 2214. Pt. having increased respiratory efforts from being rolled to remove bedpan. Pt. pulled up in bed, O2 increased to 7L/NC. Notified family that this nurse would administer Morphine to patient to ease patient's air hunger. Family were outside of room in hallway speaking to Dr. Lezama. This nurse was slowly pushing Morphine 2mg IVP for patient when patient suddenly become nonresponsive and would only look to the left. Patient noted to have agonal respirations and skin becoming faith in color on the chest and arms. This nurse immediately went to notify family and physician standing outside of room. Dr. Lezama came into room and verified that patient was only having intermittent heartbeats with agonal respirations. Pt. telemetry showed afib with SVR and patient remained with agonal breathing. Pt. remained unresponsive and had full asystole at [address] Lezama. supervisor inventory merchandising notified of patient at 2234. All family members at bedside. supervisor inventory merchandising notifying MTS.
--- NOTE | 2019-05-27 23:43 | PC.NURSE ---
Body transfer record signed by patient's son at 2343. home of choice is [facility] in [place], [place]. This nurse was notified by oracle data warehouse developer AIDE Dempsey that patient is not a candidate per MTS.
--- NOTE | 2019-05-28 01:00 | PC.NURSE ---
[facility] This nurse spoke with [facility] hostess party sales representative regarding patient's history per H&P charting. Hedge Fund Manager stated that patient is a potential candidate for donation. [facility] representatives called and spoke with patient brennan Parra. This nurse notified by guest house manager Roselyn that family have agreed to donation. Two drops sterile normal saline placed in each of patient's eyes. Eyelids closed and ice pack placed to eyes. Patient HOB elevated to 30 degrees. Will await [facility] staff arrival.
--- NOTE | 2019-05-28 03:17 | PC.NURSE ---
Post Mortem Care Post mortem care provided to patient, placed in clean gown and linens. Awaiting saving site staff arrival. Ice still in place to patient eyes, HOB elevated at 40 degrees.
--- NOTE | 2019-05-28 05:56 | PC.NURSE ---
[facility] metals sales representative performed eye donation procedures at 0515.
--- NOTE | 2019-05-28 05:58 | PC.NURSE ---
Home [facility] notified pt is ready to be picked up.
--- NOTE | 2019-05-28 06:42 | PC.NURSE ---
[facility] [employer] Quality Manager picked up pt at 0638 via stretcher.
[2019-05-29 07:31] LABS: Glucose Point of Care 161 mg/dL (70-110)
[2019-05-29 07:31] LABS: Glucose Point of Care 131 mg/dL (70-110)
[2019-05-29 07:31] LABS: Glucose Point of Care 523 mg/dL (70-110)
[2019-05-29 07:31] LABS: Glucose Point of Care 76 mg/dL (70-110)
[2019-05-29 07:31] LABS: Glucose Point of Care 116 mg/dL (70-110)
[2019-05-29 07:31] LABS: Glucose Point of Care 165 mg/dL (70-110)
[2019-05-29 07:31] LABS: Glucose Point of Care 166 mg/dL (70-110)
[2019-05-29 07:31] LABS: Glucose Point of Care 193 mg/dL (70-110)
[2019-05-29 07:31] LABS: Glucose Point of Care 488 mg/dL (70-110)
== END 2019-05-27 22:28 | disposition expired | DRG 189 ==
LOC: ER 17:54 → ICU 18:20 → MEDSURG 05-27 13:27
PROVIDERS: Hospitalist; Admitting Provider Family Medicine; Emergency Provider Emergency Medicine; PCP Nurse Practitioner Family; Visit Provider Student in an Organized Health Care Education/Training Program
DX: J96.21 Acute and chronic respiratory failure with hypoxia (principal); E11.10 Type 2 diabetes mellitus with ketoacidosis without coma; J18.9 Pneumonia, unspecified organism; I47.1 Supraventricular tachycardia; I50.32 Chronic diastolic (congestive) heart failure; C34.91 Malignant neoplasm of unspecified part of right bronchus or lung; E87.1 Hypo-osmolality and hyponatremia; Z66 Do not resuscitate; E78.5 Hyperlipidemia, unspecified; I95.9 Hypotension, unspecified; J44.9 Chronic obstructive pulmonary disease, unspecified; Z79.82 Long term (current) use of aspirin; Z79.899 Other long term (current) drug therapy; Z79.4 Long term (current) use of insulin; Z87.891 Personal history of nicotine dependence
CPT/HCPCS: 12345; 36415; 36416; 36600; 51702; 71045; 80048; 80053; 81001; 82009; 82805; 82962; 83605; 83735; 83880; 84100; 84145; 85025; 85610; 87040; 93005; 94640; 94660; 94664; 96372; 96375; 99281; C9113; J1650; J1815; J1940; J1956; J2060; J2270; J2543; J2930; J3370; J3490; J7030; J7050